=== PATIENT | male | born 1960 | race Caucasian/White ===

== ENCOUNTER 2017-07-18 14:58 | Inpatient (IN) | payer OTHER ==
[2017-07-18] MEDS ORDERED: cefTRIAXone (Rocephin) 250 mg Inj IVPB STA (16:15)
[2017-07-18] MEDS ORDERED: Sodium Chloride 0.9% 1,000 ML IV ONE ×2 (16:16→18:31)
[2017-07-18] MEDS ORDERED: Sodium Chloride 0.9% 1,000 ML ONE ×2 (16:43→18:35)
[2017-07-18 16:45] LABS: BASO # 0.1 K/uL (0.0-0.2); BASO % 0.4 % (0.0-2.0); EOS # 0.3 K/uL (0.0-0.7); HEMATOCRIT 33.6 % (35.0-51.0); LYMPH # 1.4 K/uL (1.0-4.3); LYMPH % 5.3 % (20.0-40.0); MEAN CELL VOLUME 97.1 fL (80.0-94.0); MEAN CORPUSCULAR HEMOGLOBIN 34.1 pg (27.0-31.0); MEAN CORPUSCULAR HGB CONC 35.1 g/dL (33.0-37.0); MEAN PLATELET VOLUME 7.9 fL (7.2-11.7); MONO # 2.8 K/uL (0.0-0.8); MONO % 10.5 % (0.0-10.0); PLATELET COUNT 193 K/uL (130-400); RED CELL DISTRIBUTION WIDTH 14.8 % (11.5-14.5); WHITE BLOOD COUNT 26.6 K/uL (4.8-10.8)
[2017-07-18] MEDS ORDERED: cefTRIAXone IV 1 gm in Dextros 50 ML IVPB ONE (16:46)
[2017-07-18 16:52] LABS: RBC URINE 59 /hpf (0-3); URINE BACTERIA MANY (<OCC); URINE BILIRUBIN NEGATIVE (NEGATIVE); URINE BLOOD 2+ (NEGATIVE); URINE COLOR Yellow (YELLOW); URINE GLUCOSE (UA) NORMAL (Normal); URINE KETONE NEGATIVE (NEGATIVE); URINE LEUKOCYTE ESTERASE 3+ Leu/uL (Negative); URINE PROTEIN 1+ mg/dL (NEGATIVE); URINE UROBILINOGEN NORMAL mg/dL (0.2-1.0); WBC URINE 120 /hpf (0-5)
[2017-07-18 17:01] LABS: POTASSIUM 2.8 mmol/L (3.6-5.2)
[2017-07-18 17:03] LABS: ALB/GLOB RATIO 0.7 (1.0-2.1); BILIRUBIN,TOTAL 0.4 mg/dL (0.2-1.3); TOTAL PROTEIN 7.2 g/dL (6.3-8.3)
[2017-07-18 17:04] LABS: CALCIUM 7.6 mg/dl (8.6-10.4)
--- NOTE | 2017-07-18 17:50 | C.PDOC ---
History Of Present Illness 57 y/o male presents to the ED c/o chills, general body aches, and a brown penile discharge. The patient states has not been sexually active for the 2-3 months. The patient has not been tested for STDS. The patient also states that during urination he has pain. The patient notes having low abdominal discomfort. The patient denies having STDS, fever, dizziness,vomiting, nausea, and sweats. Time Seen by Provider: 07/18/17 15:31 Chief Complaint (Nursing): Male Genitourinary History Per: Patient Onset/Duration Of Symptoms: Days Current Symptoms Are (Timing): Still Present Past Medical History Reviewed: Historical Data, Nursing Documentation, Vital Signs Vital Signs: Last Vital Signs Temp 99.5 F 07/18/17 18:02 Pulse 100 H 07/18/17 18:02 Resp 16 07/18/17 18:02 BP 112/74 07/18/17 18:02 Pulse Ox 99 07/18/17 18:08 Surgical History: No Surg Hx Family History: States: Unknown Family Hx - Social History Hx Tobacco Use: Yes Hx Alcohol Use: Yes (quit one month ago) Hx Substance Use: No - Immunization History Hx Influenza Vaccination: No Hx Pneumococcal Vaccination: No Review Of Systems Except As Marked, All Systems Reviewed And Found Negative. Constitutional: Positive for: Chills, Malaise. Negative for: Fever, Sweats Respiratory: Negative for: Cough, Shortness of Breath Gastrointestinal: Positive for: Abdominal Pain (low). Negative for: Nausea, Vomiting Genitourinary: Positive for: Penile Discharge (brown color). Negative for: Hematuria, Penile Pain (when the patient urinates) Skin: Negative for: Rash, Lesions Physical Exam - Physical Exam Appears: Non-toxic Skin: Warm Head: Atraumatic, Normacephalic Oral Mucosa: Moist Neck: Supple Chest: Symmetrical Cardiovascular: Rhythm Regular Respiratory: Normal Breath Sounds Gastrointestinal/Abdominal: Soft, No Tenderness, No Guarding, No Rebound Male Genital: No Testicular Tenderness, No Testicular Swelling, No Circumcised, Other (uncircumcised, visble discharge at the pit of the penis , adenopathy to the femoral region and testes are descended ) Extremity: Capillary Refill (<2sec. ) Neurological/Psych: Oriented x3, Normal Speech, Normal Cognition Gait: Steady ED Course And Treatment - Laboratory Results Result Diagrams: 10/07/17 16:40 07/18/17 16:40 O2 Sat by Pulse Oximetry: 99 (RA) Progress Note: The patient received IV fluids, Blood work, urine culture, electrocardiogram, ABD and Pelvis contrast, ABD and pelvis w/o PO. The patient was administered Rocephin. The exams are unremarkable. The patient has improved and is resting comfortably. Upon, reevaluation the patient is afebrile and PO tolerant. The patient is advised to have a follow up with PMD for further evaluation. Medical Decision Making Medical Decision Making: Patient with c/o fever, chills, penile discharge. Hypokalemia. RI elevated WBC count Disposition Discussed With Dr.: Lucien Christensen Counseled Patient/Family Regarding: Studies Performed, Diagnosis - Disposition Disposition: HOSPITALIZED Disposition Time: 18:33 Condition: GUARDED - Clinical Impression Clinical Impression: Chills, Hypokalemia, Renal insufficiency, Penile discharge - Scribe Statement The provider has reviewed the documentation as recorded by the Alvaibcarmel Villaseñor All medical record entries made by the Alvaibcarmel were at my direction and personally dictated by me. I have reviewed the chart and agree that the record accurately reflects my personal performance of the history, physical exam, medical decision making, and the department course for this patient. I have also personally directed, reviewed, and agree with the discharge instructions and disposition. Decision To Admit - Pt Status Changed To: Hospital Disposition Of: Inpatient - Admit Certification Admit to Inpatient:: After my assessment, the patient will require hospitalization for at least two midnights. This is because of the severity of symptoms shown, intensity of services needed, and/or the medical risk in this patient being treated as an outpatient. - InPatient: Physician Admission Certification: I certify that this patient requires 2 or more midnights of care for the following reason:: new onset RI, Hypok, fever, chills, abdominal pain , penile discharge, leukocytosis - . Bed Request Type: Regular Patient Diagnosis: Chills, Hypokalemia, Renal insufficiency, Penile discharge
[2017-07-18 18:04] LABS: VENOUS BLOOD GAS BASE EXCESS -9.8 mmol/L (0.0-2.0); VENOUS BLOOD GAS PCO2 30 mmHg (40-60); VENOUS BLOOD PH 7.31 (7.32-7.43)
[2017-07-18 18:04] LABS: NEUTROPHIL 90 % (50-75); TOTAL CELLS COUNTED 100
[2017-07-18 18:05] LABS: LARGE PLATELETS PRESENT
[2017-07-18] MEDS ORDERED: Potassium Chloride 20 mEq/15 ml LIQ UD PO STA (18:07)
--- NOTE | 2017-07-18 18:19 | RAD ---
HISTORY: SOB COMPARISON: No prior. TECHNIQUE: Chest PA and lateral FINDINGS: LUNGS: Prominent reticular opacities in the lungs. There are emphysematous changes and thin wall cystic formations seen more prominent in the upper lobes. PLEURA: No significant pleural effusion identified. No pneumothorax apparent. CARDIOVASCULAR: Normal. OSSEOUS STRUCTURES: No significant abnormalities. VISUALIZED UPPER ABDOMEN: Normal. OTHER FINDINGS: None. IMPRESSION: Findings suspicious for COPD/ emphysema.
[2017-07-18] MEDS ORDERED: Potassium Chloride 20 mEq/15 ml LIQ UD ONE (18:37)
--- NOTE | 2017-07-18 21:54 | CP.PCM.HP ---
<Colten Fraire - Last Filed: 07/19/17 05:26> History of Present Illness - History of Present Illness History of Present Illness: PGY1 Medicine Note for Dr. Murphy Patient is a 57 year old male with no past medical history, presenting to the emergency room with fever/chills, body aches and painful, darkened/ discolored urine. The patient is predominately Italian speaking, a nurse was used to translate. Patient states the symptoms originally started two weeks ago and have been getting progressively worse. The patient states he started having painful urination about 2 weeks ago. He soon noticed that his urine was darker and brown in color. Over the past few days he has started to experience subjective fevers and chills periodically. He also states that he has been experiencing lower abdominal discomfort along with whole body aches. Patient states he is monogamous with his girlfriend and uses condoms for protection. He denies hx of STDs. Denies n/v/d/c, chest pain, sob, lightheadness, dizziness or headaches. PMH: denies PSH: denies Family: unknown Social: current smoker, quit alcohol one month ago, denies IV drug abuse Allergies: NKDA Present on Admission - Present on Admission Any Indicators Present on Admission: No Review of Systems - Constitutional Constitutional: Chills, Fever, Malaise - EENT Eyes: absent: Change in Vision Ears: absent: Dizziness Nose/Mouth/Throat: absent: Neck Pain - Cardiovascular Cardiovascular: absent: Chest Pain, Leg Edema, Pedal Edema - Respiratory Respiratory: absent: Cough - Gastrointestinal Gastrointestinal: Abdominal Pain (suprapubic). absent: Diarrhea, Nausea, Vomiting - Genitourinary Genitourinary: Difficulty Urinating, Dysuria. absent: Flank Pain - Reproductive: Male Reproductive:Male: Penile Discharge - Musculoskeletal Musculoskeletal: absent: Numbness, Tingling - Neurological Neurological: absent: Dizziness, Numbness, Vertigo - Psychiatric Psychiatric: absent: Confusion, Depression - Endocrine Endocrine: Cold Intolorance, Fatigue, Heat Intolorance. absent: Palpitations Past Patient History - Past Social History Smoking Status: Light Smoker < 10 Cigarettes Daily - PSYCHIATRIC Hx Substance Use: No - SURGICAL HISTORY Hx Surgeries: No Meds Allergies/Adverse Reactions: Allergies Allergy/AdvReac Type Severity Reaction Status Date / Time No Known Allergies Allergy Verified 07/18/17 17:27 Physical Exam - Constitutional Appears: Non-toxic, No Acute Distress - Head Exam Head Exam: ATRAUMATIC, NORMOCEPHALIC - Eye Exam Eye Exam: EOMI, Normal appearance - ENT Exam ENT Exam: Mucous Membranes Moist - Respiratory Exam Respiratory Exam: NORMAL BREATHING PATTERN. absent: Accessory Muscle Use, Clear to Auscultation Bilateral, Rales, Wheezes, Respiratory Distress - Cardiovascular Exam Cardiovascular Exam: REGULAR RHYTHM, +S1, +S2 - GI/Abdominal Exam GI & Abdominal Exam: Normal Bowel Sounds, Soft. absent: Distended, Firm, Guarding, Rigid, Tenderness - Rectal Exam Additional comments: Rectal tone intact. Mildly tender to palpation of left boarder of prostate - not very impressive for prostatitis - Extremities Exam Extremities exam: Positive for: normal capillary refill, pedal pulses present. Negative for: calf tenderness, pedal edema Additional comments: splinter hemorrhages in nails. - Back Exam Back exam: absent: CVA tenderness (L), CVA tenderness (R) - Neurological Exam Neurological exam: Alert, CN II-XII Intact, Oriented x3 - Psychiatric Exam Psychiatric exam: Normal Affect, Normal Mood - Skin Skin Exam: Dry, Normal Color, Warm Results - Vital Signs Recent Vital Signs: Last Vital Signs Temp 100.0 F H 07/18/17 21:34 Pulse 108 H 07/18/17 21:34 Resp 16 07/18/17 21:34 BP 119/73 07/18/17 21:34 Pulse Ox 95 07/18/17 21:34 - Labs Result Diagrams: 07/18/17 16:40 07/18/17 16:40 Labs: Laboratory Results - last 24 hr 07/18/17 07/18/17 07/18/17 16:31 16:40 16:40 WBC 26.6 H RBC 3.46 L Hgb 11.8 L Hct 33.6 L MCV 97.1 H MCH 34.1 H MCHC 35.1 RDW 14.8 H Plt Count 193 MPV 7.9 Neut % (Auto) 82.8 H Lymph % (Auto) 5.[address] [place] % (Auto) 10.5 H Eos % (Auto) 1.0 Baso % (Auto) 0.4 Neut # 22.0 H Lymph # 1.4 [place] # 2.8 H Eos # 0.3 Baso # 0.1 Neutrophils % (Manual) 90 H Lymphocytes % (Manual) 4 L Monocytes % (Manual) 6 Platelet Estimate Slightly decreased L Large Platelets Present pO2 VBG pH VBG pCO2 VBG HCO3 VBG Total CO2 VBG O2 Sat (Calc) VBG Base Excess VBG Potassium Glucose Lactate Crit Value Called To Crit Value Called By Crit Value Read Back Blood Gas Notified Time Sodium 131 L Potassium 2.8 L Chloride 101 Carbon Dioxide 16 L Anion Gap 17 BUN 43 H Creatinine 2.8 H Est GFR ( Amer) 29 Est GFR (Non-Af Amer) 24 Random Glucose 132 H Calcium 7.6 L Total Bilirubin 0.4 AST 29 ALT 26 Alkaline Phosphatase 186 H Total Protein 7.2 Albumin 3.0 L Globulin 4.3 H Albumin/Globulin Ratio 0.7 L Venous Blood Potassium Urine Color Yellow Urine Clarity Hazy Urine pH 6.0 Ur Specific [place] 1.005 Urine Protein 1+ H Urine Glucose (UA) Normal Urine Ketones Negative Urine Blood 2+ H Urine Nitrate Negative Urine Bilirubin Negative Urine Urobilinogen Normal Ur Leukocyte Esterase 3+ H Urine WBC (Auto) 120 H Urine RBC (Auto) 59 H Urine Bacteria Many H RPR Hep Bs Antibody HIV 1&2 Antibody Screen 07/18/17 07/18/17 07/18/17 16:40 16:40 16:40 WBC RBC Hgb Hct MCV MCH MCHC RDW Plt Count MPV Neut % (Auto) Lymph % (Auto) [place] % (Auto) Eos % (Auto) Baso % (Auto) Neut # Lymph # [place] # Eos # Baso # Neutrophils % (Manual) Lymphocytes % (Manual) Monocytes % (Manual) Platelet Estimate Large Platelets pO2 VBG pH VBG pCO2 VBG HCO3 VBG Total CO2 VBG O2 Sat (Calc) VBG Base Excess VBG Potassium Glucose Lactate Crit Value Called To Crit Value Called By Crit Value Read Back Blood Gas Notified Time Sodium Potassium Chloride Carbon Dioxide Anion Gap BUN Creatinine Est GFR ( Amer) Est GFR (Non-Af Amer) Random Glucose Calcium Total Bilirubin AST ALT Alkaline Phosphatase Total Protein Albumin Globulin Albumin/Globulin Ratio Venous Blood Potassium Urine Color Urine Clarity Urine pH Ur Specific [place] Urine Protein Urine Glucose (UA) Urine Ketones Urine Blood Urine Nitrate Urine Bilirubin Urine Urobilinogen Ur Leukocyte Esterase Urine WBC (Auto) Urine RBC (Auto) Urine Bacteria RPR Nonreactive Hep Bs Antibody Negative HIV 1&2 Antibody Screen Negative 07/18/17 18:01 WBC RBC Hgb Hct MCV MCH MCHC RDW Plt Count MPV Neut % (Auto) Lymph % (Auto) [place] % (Auto) Eos % (Auto) Baso % (Auto) Neut # Lymph # [place] # Eos # Baso # Neutrophils % (Manual) Lymphocytes % (Manual) Monocytes % (Manual) Platelet Estimate Large Platelets pO2 34 VBG pH 7.31 L VBG pCO2 30 L VBG HCO3 16.2 VBG Total CO2 16.0 L VBG O2 Sat (Calc) 71.0 H VBG Base Excess -9.8 L VBG Potassium 2.3 L* Glucose 111 H Lactate 0.8 Crit Value Called To Dr. catalan Crit Value Called By Ricky qiu Crit Value Read Back Y Blood Gas Notified Time 1804 Sodium 136.0 Potassium Chloride 112.0 H Carbon Dioxide Anion Gap BUN Creatinine Est GFR ( Amer) Est GFR (Non-Af Amer) Random Glucose Calcium Total Bilirubin AST ALT Alkaline Phosphatase Total Protein Albumin Globulin Albumin/Globulin Ratio Venous Blood Potassium 2.3 L* Urine Color Urine Clarity Urine pH Ur Specific [place] Urine Protein Urine Glucose (UA) Urine Ketones Urine Blood Urine Nitrate Urine Bilirubin Urine Urobilinogen Ur Leukocyte Esterase Urine WBC (Auto) Urine RBC (Auto) Urine Bacteria RPR Hep Bs Antibody HIV 1&2 Antibody Screen Assessment & Plan - Assessment and Plan (Free Text) Assessment: Sepsis 2/2 UTI CXR - Findings suspicious for COPD/ emphysema. Abd/Pelvis w/o PO or IV contrast CT - f/u official report, may need f/u MRI - something suspicious seen in vertebral discs L5 and S1 Leukocytosis 26.6, left shift neutro 90%, no bands VBG: pO2 - 34 pH - 7.31 L pCO2 - 30 L HCO3 - 16.2 Lactate - 0.8 CMP: Na 131, K 2.8, BUN 43, Cr 2.8, Alk Phos 186, continue to monitor UA - cloudy (non-transparent), 1+ protein, 2+ blood, 3+ Leuk Meena, bacteria many RPR - nonreactive Hep Bs Ab - neg HIV Ab screen - neg PSA - 1.26 Procalcitonin 15.67 H Received one dose of Rocephin 1gm and Azithromycin in ED Started on Doxycycline 100mg IVPB Q12H and Zosyn 2.25gm IVPB Q8H Lactated Ringer @125mL/hr f/u echo f/u urine culture f/u blood culture x4 (2 sets of 2) f/u GC/Chlamydia Acute Kidney Injury BUN 43, Cr 2.8 - continue to monitor Renal dosing for medications - zosyn 2.25gm Lactated Ringer @125mL/hr Continue to monitor Prophylactic Care Heparin 5000units SC Q8H Protonix 40mg PO daily Case discussed with Dr. Katherine Fraire PGY1 <Kartik Murphy P - Last Filed: 07/19/17 07:48> Results - Vital Signs Recent Vital Signs: Last Vital Signs Temp 98.1 F 07/19/17 04:40 Pulse 86 07/19/17 04:40 Resp 20 07/19/17 04:40 BP 113/68 07/19/17 04:40 Pulse Ox 95 07/19/17 04:40 - Labs Result Diagrams: 07/18/17 16:40 07/18/17 16:40 Labs: Laboratory Results - last 24 hr 07/18/17 07/18/17 07/18/17 16:31 16:40 16:40 WBC 26.6 H RBC 3.46 L Hgb 11.8 L Hct 33.6 L MCV 97.1 H MCH 34.1 H MCHC 35.1 RDW 14.8 H Plt Count 193 MPV 7.9 Neut % (Auto) 82.8 H Lymph % (Auto) 5.[address] % (Auto) 10.5 H Eos % (Auto) 1.0 Baso % (Auto) 0.4 Neut # 22.0 H Lymph # 1.4 [place] # 2.8 H Eos # 0.3 Baso # 0.1 Neutrophils % (Manual) 90 H Lymphocytes % (Manual) 4 L Monocytes % (Manual) 6 Platelet Estimate Slightly decreased L Large Platelets Present pO2 VBG pH VBG pCO2 VBG HCO3 VBG Total CO2 VBG O2 Sat (Calc) VBG Base Excess VBG Potassium Glucose Lactate Crit Value Called To Crit Value Called By Crit Value Read Back Blood Gas Notified Time Sodium 131 L Potassium 2.8 L Chloride 101 Carbon Dioxide 16 L Anion Gap 17 BUN 43 H Creatinine 2.8 H Est GFR ( Amer) 29 Est GFR (Non-Af Amer) 24 Random Glucose 132 H Calcium 7.6 L Total Bilirubin 0.4 AST 29 ALT 26 Alkaline Phosphatase 186 H Total Protein 7.2 Albumin 3.0 L Globulin 4.3 H Albumin/Globulin Ratio 0.7 L Prostate Specific Ag Procalcitonin Venous Blood Potassium Urine Color Yellow Urine Clarity Hazy Urine pH 6.0 Ur Specific [place] 1.005 Urine Protein 1+ H Urine Glucose (UA) Normal Urine Ketones Negative Urine Blood 2+ H Urine Nitrate Negative Urine Bilirubin Negative Urine Urobilinogen Normal Ur Leukocyte Esterase 3+ H Urine WBC (Auto) 120 H Urine RBC (Auto) 59 H Urine Bacteria Many H RPR Hep Bs Antibody HIV 1&2 Antibody Screen 07/18/17 07/18/17 07/18/17 16:40 16:40 16:40 WBC RBC Hgb Hct MCV MCH MCHC RDW Plt Count MPV Neut % (Auto) Lymph % (Auto) [place] % (Auto) Eos % (Auto) Baso % (Auto) Neut # Lymph # [place] # Eos # Baso # Neutrophils % (Manual) Lymphocytes % (Manual) Monocytes % (Manual) Platelet Estimate Large Platelets pO2 VBG pH VBG pCO2 VBG HCO3 VBG Total CO2 VBG O2 Sat (Calc) VBG Base Excess VBG Potassium Glucose Lactate Crit Value Called To Crit Value Called By Crit Value Read Back Blood Gas Notified Time Sodium Potassium Chloride Carbon Dioxide Anion Gap BUN Creatinine Est GFR ( Amer) Est GFR (Non-Af Amer) Random Glucose Calcium Total Bilirubin AST ALT Alkaline Phosphatase Total Protein Albumin Globulin Albumin/Globulin Ratio Prostate Specific Ag Procalcitonin Venous Blood Potassium Urine Color Urine Clarity Urine pH Ur Specific [place] Urine Protein Urine Glucose (UA) Urine Ketones Urine Blood Urine Nitrate Urine Bilirubin Urine Urobilinogen Ur Leukocyte Esterase Urine WBC (Auto) Urine RBC (Auto) Urine Bacteria RPR Nonreactive Hep Bs Antibody Negative HIV 1&2 Antibody Screen Negative 07/18/17 07/18/17 07/18/17 18:01 21:17 22:06 WBC RBC Hgb Hct MCV MCH MCHC RDW Plt Count MPV Neut % (Auto) Lymph % (Auto) [place] % (Auto) Eos % (Auto) Baso % (Auto) Neut # Lymph # [place] # Eos # Baso # Neutrophils % (Manual) Lymphocytes % (Manual) Monocytes % (Manual) Platelet Estimate Large Platelets pO2 34 VBG pH 7.31 L VBG pCO2 30 L VBG HCO3 16.2 VBG Total CO2 16.0 L VBG O2 Sat (Calc) 71.0 H VBG Base Excess -9.8 L VBG Potassium 2.3 L* Glucose 111 H Lactate 0.8 Crit Value Called To Dr. catalan Crit Value Called By Ricky qiu Crit Value Read Back Y Blood Gas Notified Time 1804 Sodium 136.0 Potassium Chloride 112.0 H Carbon Dioxide Anion Gap BUN Creatinine Est GFR ( Amer) Est GFR (Non-Af Amer) Random Glucose Calcium Total Bilirubin AST ALT Alkaline Phosphatase Total Protein Albumin Globulin Albumin/Globulin Ratio Prostate Specific Ag 1.26 Procalcitonin 15.67 H Venous Blood Potassium 2.3 L* Urine Color Urine Clarity Urine pH Ur Specific [place] Urine Protein Urine Glucose (UA) Urine Ketones Urine Blood Urine Nitrate Urine Bilirubin Urine Urobilinogen Ur Leukocyte Esterase Urine WBC (Auto) Urine RBC (Auto) Urine Bacteria RPR Hep Bs Antibody HIV 1&2 Antibody Screen Attending/Attestation - Attestation I have personally seen and examined this patient.: Yes I have fully participated in the care of the patient.: Yes I have reviewed all pertinent clinical information: Yes Notes (Text): Assessment * Sepsis with turbid urine, air in the bladder suggesting either gas forming bact vs fistula * Clinically bacterimic r/o endocarditis, ? right second toe splinter hemorrhage * RADHA from above vs effect of excessive Ibuprofen of 800mg qid for > then wk * Patient has clubbing unclear significance Plan * IV zosyn and doxycycline * Echo * IVF * avoid nephortoxic meds * gi/dvt prophylaxis * Pending eval of source of bladder infection, possible fistula, or any secondary source of infection depending on further course.
[2017-07-18] MEDS: Piperacill/Tazo 2.25gm in Dex 2.25 GM/50 ML BAG IVPB SCH (22:19)
[2017-07-18] MEDS: Lactated Ringer's 1,000 ML IV SCH (22:20)
[2017-07-19] MEDS: Lactated Ringer's 1,000 ML IV SCH ×2 (05:46→16:48)
[2017-07-19] MEDS: Piperacill/Tazo 2.25gm in Dex 2.25 GM/50 ML BAG IVPB SCH ×2 (05:46→13:40)
--- NOTE | 2017-07-19 08:41 | CT ---
PROCEDURE: CT Abdomen and Pelvis without intravenous contrast HISTORY: Generalized abdominal pain COMPARISON: None. TECHNIQUE: Axial and reformatted coronal and sagittal CT images of the abdomen and pelvis were obtained without IV or oral contrast administration.. Contrast Dose: 0 Radiation dose: Total exam DLP = 214.79 mGy-cm. This CT exam was performed using one or more of the following dose reduction techniques: Automated exposure control, adjustment of the mA and/or kV according to patient size, and/or use of iterative reconstruction technique. FINDINGS: LOWER THORAX: Unremarkable. LIVER: The liver is mildly enlarged. No discrete mass lesion noted in this noncontrast exam. . No ductal dilatation. GALLBLADDER AND BILE DUCTS: Mild gallbladder wall thickening. No CT evidence of cholecystitis. PANCREAS: Unremarkable. No gross lesion or ductal dilatation. SPLEEN: Unremarkable. ADRENALS: Unremarkable. No mass. KIDNEYS AND URETERS: The right kidney is mildly to moderately enlarged. There is mild dietitian of the right kidney collecting system and mild surrounding perirenal stranding seen. There is no evidence of obstructing stone. The left kidney is unremarkable without evidence of hydronephrosis or nephrolithiasis. VASCULATURE: Unremarkable. No aortic aneurysm. BOWEL: Sigmoid colon wall thickening is noted. Scattered colonic diverticulosis are seen without definite CT evidence of diverticulitis. Mildly dilated small bowel loops without evidence of high-grade bowel obstruction. APPENDIX: There is no evidence of appendicitis. PERITONEUM: Trace free fluid is seen. No evidence of free air in the abdomen and pelvis. LYMPH NODES: Slightly prominent retroperitoneal and mesenteric lymph nodes. BLADDER: The urinary bladder is mildly distended contains moderate amount of air. REPRODUCTIVE: Prostate is mildly enlarged. BONES: No acute fracture. OTHER FINDINGS: None. IMPRESSION: [id number] diffuse enlargement of the right kidney noted. The differential diagnosis includes infectious process such as pyelonephritis. The differential consideration also includes lymphoma. Mildly dilated right kidney collecting system without evidence of obstructing stone. Mild anasarca. Sigmoid colon wall thickening of uncertain etiology. Few scattered colonic diverticulosis seen without evidence of diverticulitis. Mildly to moderately distended bladder contains moderate amount of free air. The differential diagnosis includes recent instrumentation versus less likely cystitis with gas-forming organisms. Mildly dilated small bowel loops without evidence of high-grade bowel obstruction. The assessment of the GI is somewhat limited without oral contrast administration. Preliminary report was submitted by [facility].
[2017-07-19 08:44] LABS: POTASSIUM 3.1 mmol/L (3.6-5.2)
[2017-07-19 08:47] LABS: ALB/GLOB RATIO 0.7 (1.0-2.1); BILIRUBIN,TOTAL 0.5 mg/dL (0.2-1.3); CALCIUM 7.3 mg/dl (8.6-10.4); PHOSPHOROUS 3.1 mg/dL (2.5-4.5); TOTAL PROTEIN 6.5 g/dL (6.3-8.3)
[2017-07-19 08:48] LABS: MAGNESIUM 2.4 mg/dL (1.6-2.3)
[2017-07-19] MEDS: Pantoprazole 40 mg EC Tab PO SCH (11:00)
[2017-07-19] MEDS ORDERED: Potassium Chloride 20 mEq ER Tab PO ONE (12:27)
[2017-07-19 17:44] LABS: BASO # 0.1 K/uL (0.0-0.2); BASO % 0.8 % (0.0-2.0); EOS # 0.1 K/uL (0.0-0.7); EOS % 0.7 % (0.0-4.0); HEMATOCRIT 31.9 % (35.0-51.0); LYMPH # 1.6 K/uL (1.0-4.3); LYMPH % 11.4 % (20.0-40.0); MEAN CELL VOLUME 98.1 fL (80.0-94.0); MEAN CORPUSCULAR HEMOGLOBIN 33.9 pg (27.0-31.0); MEAN CORPUSCULAR HGB CONC 34.5 g/dL (33.0-37.0); MEAN PLATELET VOLUME 8.5 fL (7.2-11.7); MONO # 1.9 K/uL (0.0-0.8); MONO % 13.5 % (0.0-10.0); RED CELL DISTRIBUTION WIDTH 14.4 % (11.5-14.5); WHITE BLOOD COUNT 13.9 K/uL (4.8-10.8)
[2017-07-19] MEDS ORDERED: Albuterol-Ipratrop 3 mg / 0.5 (3 ml) UD INH PRN (18:09)
--- NOTE | 2017-07-19 18:21 | CP.PCM.CON ---
History of Present Illness - History of Present Illness History of Present Illness: chart reviewed/ pt examined admitted with flank pain fever and poossible sepsis IV antibiotics ordered Review of Systems - Constitutional Constitutional: As Per HPI - EENT Eyes: absent: As Per HPI, Blind Spots, Blurred Vision, Change in Vision, Decreased Night Vision, Diplopia, Discharge, Dry Eye, Exophthalmos, Floaters, Irritation, Itchy Eyes, Loss of Peripheral Vision, Pain, Photophobia, Requires Corrective Lenses, Sees Flashes, Spots in Vision, Tunnel Vision, Other Visual Disturbances, Loss of Vision, Other Ears: absent: As Per HPI, Decreased Hearing, Ear Discharge, Ear Pain, Tinnitus, Abnormal Hearing, Disequilibrium, Dizziness, Other Nose/Mouth/Throat: absent: As Per HPI, Epistaxis, Nasal Congestion, Nasal Discharge, Nasal Obstruction, Nasal Trauma, Nose Pain, Post Nasal Drip, Sinus Pain, Sinus Pressure, Bleeding Gums, Change in Voice, Dental Pain, Dry Mouth, Dysphagia, Halitosis, Hoarsness, Lip Swelling, Mouth Lesions, Mouth Pain, Odynophagia, Sore Throat, Throat Swelling, Tongue Swelling, Facial Pain, Neck Pain, Neck Mass, Other - Cardiovascular Cardiovascular: absent: As Per HPI, Acrocyanosis, Chest Pain, Chest Pain at Rest , Chest Pain with Activity, Claudication, Diaphoresis, Dyspnea, Dyspnea on Exertion, Edema, Irregular Heart Rhythm, Pain Radiating to Arm/Neck/Jaw, Leg Edema, Leg Ulcers, Lightheadedness, Orthopnea, Palpitations, Paroxysmal Nocturnal Dyspnea, Pedal Edema, Radiating Pain, Rapid Heart Rate, Slow Heart Rate, Syncope, Other - Respiratory Respiratory: absent: As Per HPI, Cough, Dyspnea, Hemoptysis, Dyspnea on Exertion , Wheezing, Snoring, Stridor, Pain on Inspiration, Chest Congestion, Excessive Mucous Production, Change in Mucous Color, Pain with Coughing, Other - Gastrointestinal Gastrointestinal: absent: As Per HPI, Abdominal Pain, Belching, Bloating, Change in Bowel Habits, Change in Stool Character, Coffee Ground Emesis, Constipation, Cramping, Diarrhea, Dyspepsia, Dysphagia, Early Satiety, Excessive Flatus, Fecal Incontinence, Heartburn, Hematemesis, Hematochezia, Loose Stools, Melena, Nausea, Odynophagia, Temesmus, Vomiting, Other - Genitourinary Genitourinary: As Per HPI - Musculoskeletal Musculoskeletal: absent: As Per HPI, Abnormal Gait, Arthralgias, Atrophy, Back Pain, Deformity, Joint Swelling, Limited Range of Motion, Loss of Height, Muscle Cramps, Muscle Weakness, Myalgias, Neck Pain, Numbness, Radiating Pain into Limb, Stiffness, Tingling, Other - Integumentary Integumentary: absent: As Per HPI, Acne, Alopecia, Bleeding Lesions, Change in Hair, Change in Nails, Change in Pigmentation, Changing Lesions, Dry Skin, Erythema, Furuncle, Hirsutism, Lesions, New Lesions, Non-Healing Lesions, Photosensitivity, Pruritus, Rash, Skin Pain, Skin Ulcer, Sores, Striae, Swelling , Unusual Bruising, Wounds, Jaundice, Other - Neurological Neurological: absent: As Per HPI, Abnormal Gait, Abnormal Hearing, Abnormal Movements, Abnormal Speech, Behavioral Changes, Burning Sensations, Confusion, Convulsions, Disequilibrium, Dizziness, Numbness, Focal Weakness, Frequent Falls , Headaches, Lack of Coordination, Loss of Vision, Memory Loss, Paresthesias, Radicular Pain, Restless Legs, Sensory Deficit, Syncope, Tingling, Tremor, Vertigo, Weakness, Other Visual Disturbances, Other - Psychiatric Psychiatric: absent: As Per HPI, Abnormal Sleep Pattern, Anhedonia, Anxiety, Auditory Hallucinations, Behavioral Changes, Change in Appetite, Change in Libido, Confusion, Depression, Difficulty Concentrating, Hallucinations, Homicidal Ideation, Hopelessness, Irritability, Memory Loss, Mood Swings, Panic Attacks, Paranoia, Suicidal Ideation, Visual Hallucinations, Tactile Hallucinations, Other - Endocrine Endocrine: absent: As Per HPI, Change in Body Appearance, Change in Libido, Cold Intolorance, Deepening of Voice, Excessive Sweating, Fatigue, Flushing, Heat Intolorance, Increase in Ring/Shoe/Hat Size, Palpitations, Polydipsia, Polyphagia, Polyuria, Other - Hematologic/Lymphatic Hematologic: absent: As Per HPI, Easy Bleeding, Easy Bruising, Lymphadenopathy, Other Past Patient History - Past Medical History & Family History Past Medical History?: Yes - Past Social History Smoking Status: Light Smoker < 10 Cigarettes Daily - MUSCULOSKELETAL/RHEUMATOLOGICAL Hx Falls: No - PSYCHIATRIC Hx Substance Use: No - SURGICAL HISTORY Hx Surgeries: No - ANESTHESIA Hx Anesthesia: Yes Hx Anesthesia Reactions: No Meds Allergies/Adverse Reactions: Allergies Allergy/AdvReac Type Severity Reaction Status Date / Time No Known Allergies Allergy Verified 07/18/17 17:27 - Medications Medications: Current Medications Acetaminophen (Tylenol 325mg Tab) 650 mg PO Q6 [facility] Stop: 07/20/17 18:30 Last Admin: 07/19/17 18:12 Dose: Not Given Acetaminophen (Tylenol 325mg Tab) 650 mg PO Q6 PRN PRN Reason: Fever or pain Albuterol/Ipratropium (Duoneb 3 Mg/0.5 Mg (3 Ml) Ud) 3 ml INH RQ6 PRN PRN Reason: Shortness of Breath Heparin Sodium (Porcine) (Heparin) 5,000 units SC Q12 [facility] Last Admin: 07/19/17 11:00 Dose: 5,000 units Doxycycline Hyclate 100 mg/ (Sodium Chloride) 100 mls @ 100 mls/hr IVPB Q12H [facility] Last Admin: 07/19/17 11:00 Dose: 100 mls/hr Piperacillin Sod/Tazobactam Sod (Zosyn 2.25 Gm Iv Premix) 2.25 gm in 50 mls @ 100 mls/hr IVPB Q8H [facility] Last Admin: 07/19/17 13:40 Dose: 100 mls/hr Sodium Bicarbonate 150 meq/ (Sodium Chloride) 1,000 mls @ 100 mls/hr IV .Q10H [facility] Pantoprazole Sodium (Protonix Ec Tab) 40 mg PO DAILY [facility] Last Admin: 07/19/17 11:00 Dose: 40 mg Pneumococcal Polyvalent Vaccine (Pneumovax 23 Vaccine) 0.5 ml IM .ONCE ONE Stop: 07/20/17 10:01 Saccharomyces Boulardii (Florastor) 250 mg PO BID [facility] Fluticasone/Salmeterol (Advair Diskus 250/50) 1 puff INH RQ12 [facility] Physical Exam - Constitutional Appears: Non-toxic, Chronically Ill - Head Exam Head Exam: ATRAUMATIC, NORMAL INSPECTION, NORMOCEPHALIC - Eye Exam Eye Exam: EOMI, PERRL. absent: Scleral icterus - ENT Exam ENT Exam: Mucous Membranes Dry, Normal External Ear Exam - Neck Exam Neck exam: Negative for: Lymphadenopathy - Respiratory Exam Respiratory Exam: Decreased Breath Sounds, Rhonchi - Cardiovascular Exam Cardiovascular Exam: REGULAR RHYTHM, +S1, +S2 - GI/Abdominal Exam GI & Abdominal Exam: Diminished Bowel Sounds, Soft. absent: Tenderness - Rectal Exam Rectal Exam: Deferred - Exam Exam: NORMAL INSPECTION - Extremities Exam Extremities exam: Positive for: pedal pulses present. Negative for: calf tenderness, pedal edema, tenderness - Back Exam Back exam: absent: CVA tenderness (L), CVA tenderness (R), paraspinal tenderness - Neurological Exam Neurological exam: Alert, CN II-XII Intact, Oriented x3, Reflexes Normal - Psychiatric Exam Psychiatric exam: Normal Mood - Skin Skin Exam: Dry Results - Vital Signs Recent Vital Signs: Last Vital Signs Temp 100.9 F H 07/19/17 16:47 Pulse 82 07/19/17 16:33 Resp 20 07/19/17 16:33 BP 135/78 07/19/17 16:33 Pulse Ox 97 07/19/17 16:33 - Labs Result Diagrams: 07/22/17 07:26 07/22/17 07:26 Labs: Laboratory Results - last 24 hr 07/18/17 07/18/17 07/18/17 16:40 16:40 21:17 WBC RBC Hgb Hct MCV MCH MCHC RDW Plt Count MPV Neut % (Auto) Lymph % (Auto) [place] % (Auto) Eos % (Auto) Baso % (Auto) Neut # Lymph # [place] # Eos # Baso # Sodium Potassium Chloride Carbon Dioxide Anion Gap BUN Creatinine Est GFR ( Amer) Est GFR (Non-Af Amer) Random Glucose Calcium Phosphorus Magnesium Total Bilirubin AST ALT Alkaline Phosphatase Total Protein Albumin Globulin Albumin/Globulin Ratio Prostate Specific Ag 1.26 Procalcitonin Hep Bs Antibody Negative HIV 1&2 Antibody Screen Negative 07/18/17 07/19/17 07/19/17 22:06 08:07 16:40 WBC 13.9 H RBC 3.25 L Hgb 11.0 L Hct 31.9 L MCV 98.1 H MCH 33.9 H MCHC 34.5 RDW 14.4 Plt Count 187 MPV 8.5 Neut % (Auto) 73.6 Lymph % (Auto) 11.4 L [place] % (Auto) 13.5 H Eos % (Auto) 0.7 Baso % (Auto) 0.8 Neut # 10.2 H Lymph # 1.6 [place] # 1.9 H Eos # 0.1 Baso # 0.1 Sodium 133 Potassium 3.1 L Chloride 109 H Carbon Dioxide 13 L Anion Gap 14 BUN 38 H Creatinine 2.3 H Est GFR ( Amer) 36 Est GFR (Non-Af Amer) 30 Random Glucose 99 Calcium 7.3 L Phosphorus 3.1 Magnesium 2.4 H Total Bilirubin 0.5 AST 48 ALT 31 Alkaline Phosphatase 356 H D Total Protein 6.5 Albumin 2.7 L Globulin 3.7 Albumin/Globulin Ratio 0.7 L Prostate Specific Ag Procalcitonin 15.67 H Hep Bs Antibody HIV 1&2 Antibody Screen Assessment & Plan (1) RADHA (acute kidney injury) Status: Acute (2) Renal insufficiency Status: Acute (3) UTI (urinary tract infection) Status: Acute - Assessment and Plan (Free Text) Assessment: await cultures, eval IV antibiotics ordered
[2017-07-19] MEDS: Saccharomyces Boulardi 250 mg Cap PO SCH (19:00)
[2017-07-19] MEDS: Sodium Bicarbonate 8.4% 150 MEQ in Sodium Chloride 0.9% 850 ML IV SCH (19:08)
--- NOTE | 2017-07-19 19:15 | CP.PCM.PN ---
<Valentine Shay - Last Filed: 07/19/17 20:03> Subjective - Date & Time of Evaluation Date of Evaluation: 07/19/17 Time of Evaluation: 09:00 - Subjective Subjective: Medicine Progress Note Patient seen and examined. Patient is pleasant and tolerating his diet well. Patient is complaining of back pain bilaterally. Patient denies pain with urination today and is using urinal at bedside. Urine is yellow and clear in appearance with no blood visible to naked eye. Patient has been having fevers today with Tmax 100.9F. Denies nausea, vomiting, abdominal pain, chest pain, and shortness of breath. Objective - Vital Signs/Intake and Output Vital Signs (last 24 hours): Temp Pulse Resp BP Pulse Ox 99 F 82 20 135/78 97 07/19/17 17:47 07/19/17 16:33 07/19/17 16:33 07/19/17 16:33 07/19/17 16:33 Intake and Output: 07/19/17 07/20/17 18:59 06:59 Intake Total 2200 Output Total 1550 Balance 650 - Medications Medications: Current Medications Acetaminophen (Tylenol 325mg Tab) 650 mg PO Q6 [facility] Stop: 07/20/17 18:30 Last Admin: 07/19/17 18:12 Dose: Not Given Acetaminophen (Tylenol 325mg Tab) 650 mg PO Q6 PRN PRN Reason: Fever or pain Albuterol/Ipratropium (Duoneb 3 Mg/0.5 Mg (3 Ml) Ud) 3 ml INH RQ6 PRN PRN Reason: Shortness of Breath Heparin Sodium (Porcine) (Heparin) 5,000 units SC Q12 [facility] Last Admin: 07/19/17 11:00 Dose: 5,000 units Doxycycline Hyclate 100 mg/ (Sodium Chloride) 100 mls @ 100 mls/hr IVPB Q12H [facility] Last Admin: 07/19/17 11:00 Dose: 100 mls/hr Piperacillin Sod/Tazobactam Sod (Zosyn 2.25 Gm Iv Premix) 2.25 gm in 50 mls @ 100 mls/hr IVPB Q8H [facility] Last Admin: 07/19/17 13:40 Dose: 100 mls/hr Sodium Bicarbonate 150 meq/ (Sodium Chloride) 1,000 mls @ 100 mls/hr IV .Q10H [facility] Last Admin: 07/19/17 19:08 Dose: 100 mls/hr Pantoprazole Sodium (Protonix Ec Tab) 40 mg PO DAILY [facility] Last Admin: 07/19/17 11:00 Dose: 40 mg Pneumococcal Polyvalent Vaccine (Pneumovax 23 Vaccine) 0.5 ml IM .ONCE ONE Stop: 07/20/17 10:01 Saccharomyces Boulardii (Florastor) 250 mg PO BID [facility] Last Admin: 07/19/17 19:00 Dose: 250 mg Fluticasone/Salmeterol (Advair Diskus 250/50) 1 puff INH RQ12 [facility] - Labs Labs: 07/19/17 16:40 07/19/17 08:07 - Constitutional Appears: Non-toxic, No Acute Distress - Head Exam Head Exam: ATRAUMATIC, NORMOCEPHALIC - Eye Exam Eye Exam: EOMI, Normal appearance Pupil Exam: NORMAL ACCOMODATION - ENT Exam ENT Exam: Mucous Membranes Moist - Neck Exam Neck Exam: Normal Inspection - Respiratory Exam Respiratory Exam: NORMAL BREATHING PATTERN. absent: Accessory Muscle Use, Rhonchi, Wheezes, Respiratory Distress - Cardiovascular Exam Cardiovascular Exam: REGULAR RHYTHM, +S1, +S2 - GI/Abdominal Exam GI & Abdominal Exam: Soft, Normal Bowel Sounds. absent: Tenderness - Extremities Exam Extremities Exam: Full ROM, Normal Inspection. absent: Calf Tenderness, Pedal Edema, Tenderness - Back Exam Back Exam: CVA tenderness (L), CVA tenderness (R) Additional comments: CVA tenderness R > L - Neurological Exam Neurological Exam: Alert, Awake, CN II-XII Intact, Oriented x3 - Psychiatric Exam Psychiatric exam: Normal Affect, Normal Mood - Skin Skin Exam: Dry, Intact, Normal Color, Warm Assessment and Plan - Assessment and Plan (Free Text) Assessment: Sepsis 2/2 UTI 07/19: febrile Tmax 100.9F. WBC decreased to 13.9 today, no bands. CXR - Findings suspicious for COPD/ emphysema. Abd/Pelvis w/o PO or IV contrast CT -mild to moderate diffuse enlargement of R kidney noted, consider pyelonephritis. No stone. Sigmoid colon thickening of uncertain etiology. Distended bladder contains free air. VBG: pO2 - 34 pH - 7.31 L pCO2 - 30 L HCO3 - 16.2 Lactate - 0.8 UA - cloudy (non-transparent), 1+ protein, 2+ blood, 3+ Leuk Meena, bacteria many RPR - nonreactive Hep Bs Ab - neg HIV Ab screen - neg PSA - 1.26 Procalcitonin 15.67 H Received one dose of Rocephin 1gm and Azithromycin in ED Started on Doxycycline 100mg IVPB Q12H and Zosyn 2.25gm IVPB Q8H f/u echo Urine culture f/u blood culture x4 (2 sets of 2) f/u GC/Chlamydia Consulted ID Dr De Leon- will f/u recommendations Add florastor 250mg PO daily Hypokalemia K+ 3.1 Repleted with Kdur 40mg PO once f/u BMP in AM with mag and phos Non-Anion Gap Metabolic Acidosis Added bicarb to IVF NS, 3 amps of HCO3 in 850ml Acute on Chronic Kidney Disease GFR 36, likely chronic f/u renal ultrasound Consulted Nephro Dr Sp Devries- will f/u recommendations BUN/Cr improving with IVF Avoid nephrotoxic medications Renal dosing for medications - zosyn 2.25gm IVF NS @100cc/hr 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 Advair 250/50 INH 1puff q12h Duonebs INH q6h prn SOB Prophylactic Care Heparin 5000units SC Q8H Protonix 40mg PO daily [facility] <Yaw Cabello - Last Filed: 07/19/17 21:16> Objective - Vital Signs/Intake and Output Vital Signs (last 24 hours): Temp Pulse Resp BP Pulse Ox 99 F 82 20 135/78 97 07/19/17 17:47 07/19/17 16:33 07/19/17 16:33 07/19/17 16:33 07/19/17 16:33 Intake and Output: 07/19/17 07/20/17 18:59 06:59 Intake Total 2200 700 Output Total 1550 500 Balance 650 200 - Medications Medications: Current Medications Acetaminophen (Tylenol 325mg Tab) 650 mg PO Q6 [facility] Stop: 07/20/17 18:30 Last Admin: 07/19/17 18:12 Dose: Not Given Acetaminophen (Tylenol 325mg Tab) 650 mg PO Q6 PRN PRN Reason: Fever or pain Albuterol/Ipratropium (Duoneb 3 Mg/0.5 Mg (3 Ml) Ud) 3 ml INH RQ6 PRN PRN Reason: Shortness of Breath Heparin Sodium (Porcine) (Heparin) 5,000 units SC Q12 [facility] Last Admin: 07/19/17 11:00 Dose: 5,000 units Doxycycline Hyclate 100 mg/ (Sodium Chloride) 100 mls @ 100 mls/hr IVPB Q12H [facility] Last Admin: 07/19/17 11:00 Dose: 100 mls/hr Piperacillin Sod/Tazobactam Sod (Zosyn 2.25 Gm Iv Premix) 2.25 gm in 50 mls @ 100 mls/hr IVPB Q8H [facility] Last Admin: 07/19/17 13:40 Dose: 100 mls/hr Sodium Bicarbonate 150 meq/ (Sodium Chloride) 1,000 mls @ 100 mls/hr IV .Q10H [facility] Last Admin: 07/19/17 19:08 Dose: 100 mls/hr Pantoprazole Sodium (Protonix Ec Tab) 40 mg PO DAILY [facility] Last Admin: 07/19/17 11:00 Dose: 40 mg Pneumococcal Polyvalent Vaccine (Pneumovax 23 Vaccine) 0.5 ml IM .ONCE ONE Stop: 07/20/17 10:01 Saccharomyces Boulardii (Florastor) 250 mg PO BID [facility] Last Admin: 07/19/17 19:00 Dose: 250 mg Fluticasone/Salmeterol (Advair Diskus 250/50) 1 puff INH RQ12 [facility] Last Admin: 07/19/17 20:14 Dose: 1 puff - Labs Labs: 07/19/17 16:40 07/19/17 08:07 Attending/Attestation - Attestation I have personally seen and examined this patient.: Yes I have fully participated in the care of the patient.: Yes I have reviewed all pertinent clinical information, including history, physical exam and plan: Yes Notes (Text): 07/19/17 21:09 Patient was seen and examined at 6:15 PM 07/19/17 Upon ROS: Abdominal pain has resolved Moving his bowels and they are normal NO cough NO SOB NO Chest Pain NO burning/pain with urination NO other complaints upon FULL ROS Also on Exam: Bilateral CVA tenderness with the Right > Left Assessments: 1). Sepsis likely secondary to UTI/Pyelonephritis/Cystitis F/U blood and urine cultures Doxycycline and Zosyn ID Dr. De Leon 2). Hypokalemia Repleated with KCl 40 mEq 3). NonAnion Gap Metabolic Acidosis Secondary to sepsis 3 amps of Bicoarbonate in NS at 100 ml per hour x 1 liter ordered 4). Acute Renal Failure (on Chronic?) F/U Renal U/S F/U further recommendations from Nephrology Dr. Bell 5). COPD/Emphysema As per Chest X Ray He continues to smoke 5 to 10 cig/day for many years Advair (he should be discharged on Breo Elipta as this will be cheaper out of pocket cost) Duoneb PRN 6). Sigmoid Colon Thickening He never has had a Colonscopy and will need one upon discharge as an outpatient 7). Prophylaxis He will get Tylenol 650 mg PO every 6 hours until 6:30 PM on 07/20/17 and then it will be Q6H PRN Fever/Pain Heparin Florastor Protonix Yaw Cabello D.O.
[2017-07-19] MEDS: Fluticasone-Salmeterol 250-50mcg Diskus INH SCH (20:14)
[2017-07-20] MEDS: Piperacill/Tazo 2.25gm in Dex 2.25 GM/50 ML BAG IVPB SCH ×2 (01:21→06:09)
[2017-07-20] MEDS: Sodium Bicarbonate 8.4% 150 MEQ in Sodium Chloride 0.9% 850 ML IV SCH (05:58)
[2017-07-20] MEDS: Fluticasone-Salmeterol 250-50mcg Diskus INH SCH ×2 (07:26→20:32)
[2017-07-20 08:01] LABS: BASO # 0.1 K/uL (0.0-0.2); BASO % 0.5 % (0.0-2.0); EOS # 0.1 K/uL (0.0-0.7); EOS % 0.8 % (0.0-4.0); HEMATOCRIT 31.4 % (35.0-51.0); LYMPH # 1.2 K/uL (1.0-4.3); LYMPH % 8.7 % (20.0-40.0); MEAN CELL VOLUME 97.2 fL (80.0-94.0); MEAN CORPUSCULAR HEMOGLOBIN 33.9 pg (27.0-31.0); MEAN CORPUSCULAR HGB CONC 34.9 g/dL (33.0-37.0); MEAN PLATELET VOLUME 8.4 fL (7.2-11.7); MONO % 14.8 % (0.0-10.0); PLATELET COUNT 188 K/uL (130-400); RED CELL DISTRIBUTION WIDTH 14.7 % (11.5-14.5); WHITE BLOOD COUNT 13.8 K/uL (4.8-10.8)
[2017-07-20 08:18] LABS: POTASSIUM 2.8 mmol/L (3.6-5.2)
[2017-07-20 08:20] LABS: ALB/GLOB RATIO 0.7 (1.0-2.1); BILIRUBIN,TOTAL 0.6 mg/dL (0.2-1.3); TOTAL PROTEIN 6.1 g/dL (6.3-8.3)
[2017-07-20 08:21] LABS: CALCIUM 7.4 mg/dl (8.6-10.4)
[2017-07-20 09:39] LABS: LARGE PLATELETS PRESENT; NEUTROPHIL 60 % (50-75); TOTAL CELLS COUNTED 100
[2017-07-20] MEDS ORDERED: Pneumococcal 23-Valent Vaccine IM ONE (10:00)
[2017-07-20] MEDS ORDERED: Ciprofloxacin 400mg/200ml D5W 400 MG/200 ML BAG IVPB SCH (10:15)
[2017-07-20] MEDS: Saccharomyces Boulardi 250 mg Cap PO SCH ×2 (10:38→18:41)
[2017-07-20] MEDS: Pantoprazole 40 mg EC Tab PO SCH (10:39)
[2017-07-20] MEDS ORDERED: Potassium Chloride 20 mEq ER Tab PO ONE (10:54)
[2017-07-20] MEDS: Potassium Chloride 20 mEq/15 ml LIQ UD PO SCH ×2 (13:03→18:43)
--- NOTE | 2017-07-20 13:37 | CP.PCM.CON ---
History of Present Illness - History of Present Illness History of Present Illness: Patient is a 57 year old male with no past medical history, presenting to the emergency room with fever/chills, body aches and painful, darkened/ discolored urine. The patient is predominately Fijian speaking, a nurse was used to translate. Patient states the symptoms originally started two weeks ago and have been getting progressively worse. The patient states he started having painful urination about 2 weeks ago. He soon noticed that his urine was darker and brown in color. Over the past few days he has started to experience subjective fevers and chills periodically. He also states that he has been experiencing lower abdominal discomfort along with whole body aches. Patient states he is monogamous with his girlfriend and uses condoms for protection. He denies hx of STDs. Denies n/v/d/c, chest pain, sob, lightheadness, dizziness or headaches. Other HX- nausea and vomiting x 2 weeks; fevers; taking excess NSAIDs PMH: denies PSH: denies Family: unknown Social: current smoker, quit alcohol one month ago, denies IV drug abuse Allergies: NKDA Review of Systems - Constitutional Constitutional: Chills, Fever, Weakness - EENT Eyes: absent: As Per HPI, Blind Spots, Blurred Vision, Change in Vision, Decreased Night Vision, Diplopia, Discharge, Dry Eye, Exophthalmos, Floaters, Irritation, Itchy Eyes, Loss of Peripheral Vision, Pain, Photophobia, Requires Corrective Lenses, Sees Flashes, Spots in Vision, Tunnel Vision, Other Visual Disturbances, Loss of Vision, Other Ears: absent: As Per HPI, Decreased Hearing, Ear Discharge, Ear Pain, Tinnitus, Abnormal Hearing, Disequilibrium, Dizziness, Other Nose/Mouth/Throat: absent: As Per HPI, Epistaxis, Nasal Congestion, Nasal Discharge, Nasal Obstruction, Nasal Trauma, Nose Pain, Post Nasal Drip, Sinus Pain, Sinus Pressure, Bleeding Gums, Change in Voice, Dental Pain, Dry Mouth, Dysphagia, Halitosis, Hoarsness, Lip Swelling, Mouth Lesions, Mouth Pain, Odynophagia, Sore Throat, Throat Swelling, Tongue Swelling, Facial Pain, Neck Pain, Neck Mass, Other - Cardiovascular Cardiovascular: Dyspnea - Respiratory Respiratory: Cough - Gastrointestinal Gastrointestinal: Abdominal Pain, Nausea, Vomiting - Genitourinary Genitourinary: Difficulty Urinating, Hematuria - Musculoskeletal Musculoskeletal: Muscle Weakness, Myalgias - Integumentary Integumentary: Dry Skin - Neurological Neurological: absent: As Per HPI, Abnormal Gait, Abnormal Hearing, Abnormal Movements, Abnormal Speech, Behavioral Changes, Burning Sensations, Confusion, Convulsions, Disequilibrium, Dizziness, Numbness, Focal Weakness, Frequent Falls , Headaches, Lack of Coordination, Loss of Vision, Memory Loss, Paresthesias, Radicular Pain, Restless Legs, Sensory Deficit, Syncope, Tingling, Tremor, Vertigo, Weakness, Other Visual Disturbances, Other Past Patient History - Past Medical History & Family History Past Medical History?: Yes Past Family History: Reviewed and not pertinent - Past Social History Smoking Status: Heavy Smoker > 10 Cigarettes Daily Chewing Tobacco Use: No Cigar Use: No Alcohol: > 2 Drinks/Day Drugs: Denies Home Situation {Lives}: With Family - MUSCULOSKELETAL/RHEUMATOLOGICAL Hx Falls: No - PSYCHIATRIC Hx Substance Use: No - SURGICAL HISTORY Hx Surgeries: No - ANESTHESIA Hx Anesthesia: Yes Hx Anesthesia Reactions: No Meds Allergies/Adverse Reactions: Allergies Allergy/AdvReac Type Severity Reaction Status Date / Time No Known Allergies Allergy Verified 07/18/17 17:27 - Medications Medications: Current Medications Acetaminophen (Tylenol 325mg Tab) 650 mg PO Q6 PRN PRN Reason: Fever or pain Albuterol/Ipratropium (Duoneb 3 Mg/0.5 Mg (3 Ml) Ud) 3 ml INH RQ6 PRN PRN Reason: Shortness of Breath Heparin Sodium (Porcine) (Heparin) 5,000 units SC Q12 [facility] Last Admin: 07/20/17 11:00 Dose: 5,000 units Doxycycline Hyclate 100 mg/ (Sodium Chloride) 100 mls @ 100 mls/hr IVPB Q12H [facility] Last Admin: 07/20/17 10:38 Dose: 100 mls/hr Piperacillin Sod/Tazobactam Sod (Zosyn 2.25 Gm Iv Premix) 2.25 gm in 50 mls @ 100 mls/hr IVPB Q8H [facility] Last Admin: 07/20/17 06:09 Dose: 100 mls/hr Sodium Bicarbonate 150 meq/ (Sodium Chloride) 1,000 mls @ 100 mls/hr IV .Q10H [facility] Last Admin: 07/20/17 05:58 Dose: Not Given Pantoprazole Sodium (Protonix Ec Tab) 40 mg PO DAILY [facility] Last Admin: 07/20/17 10:39 Dose: 40 mg Potassium Chloride (Potassium Chloride Oral Soln) 20 meq PO BID [facility] Stop: 07/20/17 18:01 Last Admin: 07/20/17 13:03 Dose: 20 meq Saccharomyces Boulardii (Florastor) 250 mg PO BID [facility] Last Admin: 07/20/17 10:38 Dose: 250 mg Fluticasone/Salmeterol (Advair Diskus 250/50) 1 puff INH RQ12 [facility] Last Admin: 07/20/17 07:26 Dose: 1 puff Physical Exam - Constitutional Appears: Non-toxic, Chronically Ill - Head Exam Head Exam: ATRAUMATIC, NORMAL INSPECTION - Eye Exam Eye Exam: EOMI, Normal appearance - Neck Exam Neck exam: Positive for: Normal Inspection. Negative for: Tenderness - Respiratory Exam Respiratory Exam: Clear to Auscultation Bilateral, NORMAL BREATHING PATTERN - Cardiovascular Exam Cardiovascular Exam: REGULAR RHYTHM, +S1 - GI/Abdominal Exam GI & Abdominal Exam: Distended, Tenderness - Extremities Exam Extremities exam: Positive for: normal inspection. Negative for: tenderness - Neurological Exam Neurological exam: CN II-XII Intact, Oriented x3 - Skin Skin Exam: Dry, Warm Results - Vital Signs Recent Vital Signs: Last Vital Signs Temp 99 F 07/20/17 12:44 Pulse 68 07/20/17 12:44 Resp 20 07/20/17 12:44 BP 143/83 07/20/17 12:44 Pulse Ox 99 07/20/17 12:44 - Labs Result Diagrams: 07/20/17 07:47 07/20/17 07:47 Labs: Laboratory Results - last 24 hr 07/19/17 07/20/17 07/20/17 16:40 07:47 07:47 WBC 13.9 H 13.8 H RBC 3.25 L 3.23 L Hgb 11.0 L 11.0 L Hct 31.9 L 31.4 L MCV 98.1 H 97.2 H MCH 33.9 H 33.9 H MCHC 34.5 34.9 RDW 14.4 14.7 H Plt Count 187 188 MPV 8.5 8.4 Neut % (Auto) 73.6 75.2 H Lymph % (Auto) 11.4 L 8.7 L [place] % (Auto) 13.5 H 14.8 H Eos % (Auto) 0.7 0.8 Baso % (Auto) 0.8 0.5 Neut # 10.2 H 10.4 H Lymph # 1.6 1.2 [place] # 1.9 H 2.0 H Eos # 0.1 0.1 Baso # 0.1 0.1 Neutrophils % (Manual) 60 Band Neutrophils % 16 H* Lymphocytes % (Manual) 9 L Monocytes % (Manual) 15 H Platelet Estimate Normal Large Platelets Present Hypochromasia (manual) Slight Poikilocytosis (manual Slight Anisocytosis (manual) Slight Target Cells Slight Sodium 135 Potassium 2.8 L Chloride 106 Carbon Dioxide 19 L Anion Gap 13 BUN 28 H Creatinine 1.8 H Est GFR ( Amer) 48 Est GFR (Non-Af Amer) 39 Random Glucose 124 H Calcium 7.4 L Total Bilirubin 0.6 AST 41 ALT 40 Alkaline Phosphatase 275 H D Total Protein 6.1 L Albumin 2.5 L Globulin 3.5 Albumin/Globulin Ratio 0.7 L Assessment & Plan (1) RADHA (acute kidney injury) Status: Acute (2) UTI (urinary tract infection) Status: Acute (3) Metabolic acidosis Status: Acute (4) Hypokalemia Status: Acute - Assessment and Plan (Free Text) Plan: Agree with IV fluids with na bicarb IV ABs Renal US might need eval if changes seen on CT persist
[2017-07-20 14:22] LABS: POTASSIUM 3.6 mmol/L (3.6-5.2)
[2017-07-20 14:25] LABS: CALCIUM 7.6 mg/dl (8.6-10.4)
--- NOTE | 2017-07-20 15:43 | CP.PCM.PN ---
<Isadora Nielsen - Last Filed: 07/20/17 19:48> Subjective - Date & Time of Evaluation Date of Evaluation: 07/20/17 Time of Evaluation: 15:43 - Subjective Subjective: Internal Medicine Progress Note for Dr. Chester Patient seen and examined at bedside. Patient states he's tolerating pain well. Patient states he is doing well and understands that he will be getting an ultrasound today. Patient denies Fever Chills, nausea vomiting. Patient as some flank pain and denies difficulty with bowel movements Bands 16. Patient had a fever of 100.9 at 16:33 yesterday. Objective - Vital Signs/Intake and Output Vital Signs (last 24 hours): Temp Pulse Resp BP Pulse Ox 99 F 68 20 143/83 99 07/20/17 12:44 07/20/17 12:44 07/20/17 12:44 07/20/17 12:44 07/20/17 12:44 Intake and Output: 07/20/17 07/20/17 06:59 18:59 Intake Total 700 Output Total 500 Balance 200 - Medications Medications: Current Medications Acetaminophen (Tylenol 325mg Tab) 650 mg PO Q6 PRN PRN Reason: Fever or pain Albuterol/Ipratropium (Duoneb 3 Mg/0.5 Mg (3 Ml) Ud) 3 ml INH RQ6 PRN PRN Reason: Shortness of Breath Heparin Sodium (Porcine) (Heparin) 5,000 units SC Q12 [facility] Last Admin: 07/20/17 11:00 Dose: 5,000 units Sodium Bicarbonate 150 meq/ (Sodium Chloride) 1,000 mls @ 100 mls/hr IV .Q10H [facility] Last Admin: 07/20/17 05:58 Dose: Not Given Ceftriaxone Sodium (Rocephin Iv 1 Gm Duplex) 50 mls @ 100 mls/hr IVPB Q24H [facility] Pantoprazole Sodium (Protonix Ec Tab) 40 mg PO DAILY [facility] Last Admin: 07/20/17 10:39 Dose: 40 mg Potassium Chloride (Potassium Chloride Oral Soln) 20 meq PO BID [facility] Stop: 07/20/17 18:01 Last Admin: 07/20/17 13:03 Dose: 20 meq Saccharomyces Boulardii (Florastor) 250 mg PO BID [facility] Last Admin: 07/20/17 10:38 Dose: 250 mg Fluticasone/Salmeterol (Advair Diskus 250/50) 1 puff INH RQ12 [facility] Last Admin: 07/20/17 07:26 Dose: 1 puff - Labs Labs: 07/20/17 07:47 07/20/17 13:57 - Constitutional Appears: Non-toxic - Head Exam Head Exam: NORMAL INSPECTION - Eye Exam Eye Exam: EOMI, Normal appearance - ENT Exam ENT Exam: Mucous Membranes Moist - Neck Exam Neck Exam: Full ROM - Respiratory Exam Respiratory Exam: NORMAL BREATHING PATTERN. absent: Accessory Muscle Use - Cardiovascular Exam Cardiovascular Exam: REGULAR RHYTHM, +S1, +S2. absent: Bradycardia, Tachycardia - GI/Abdominal Exam GI & Abdominal Exam: Soft - Back Exam Back Exam: CVA tenderness (L) (less than right), CVA tenderness (R) (more than left) - Neurological Exam Neurological Exam: Alert, CN II-XII Intact, Normal Gait - Psychiatric Exam Psychiatric exam: Normal Affect, Normal Mood - Skin Skin Exam: Dry, Intact, Normal Color, Warm Assessment and Plan - Assessment and Plan (Free Text) Plan: Patient seen and examined at bedside. Patient states that she can breath better today than yesterday, but still feels shortness of breath. Patient denied history of asthma, patient admits to coughing with white phlegm *"a little bit, " Rocephin 1gm QD IV leave with quinolone depending on creatitine clearance urine for cytology possible cystoscopy Per Dr. De Leon pyelonephritis picture, suggest based on urine Culture sensitivities: patient is placed on Rocephin 1 gm IVPB QD suggesting Urine Cytology and possible cystoscopy following Urology consult recommendations. Urology Spoken to on the phone, will see recommendations tomorrow 07/21 Medicine Progress Note Patient seen and examined. Patient is pleasant and tolerating his diet well. Patient is complaining of back pain bilaterally. Patient denies pain with urination today and is using urinal at bedside. Urine is yellow and clear in appearance with no blood visible to naked eye. Patient has been having fevers today with Tmax 100.9F. Denies nausea, vomiting, abdominal pain, chest pain, and shortness of breath. Sepsis 2/2 UTI/Pyelonephritis/cystitis with positive CVA tenderness 07/19: febrile Tmax 100.9F. WBC decreased to 13.9 today, no bands. CXR - Findings suspicious for COPD/ emphysema. CT Abd/Pelvis w/o PO or IV contrast: mild to moderate diffuse enlargement of R kidney without stone. Sigmoid colon wall thickening. Distended bladder contains free air. Renal Ultrasound was ordered for 07/20, follow up final read. 07/19 VB.31 pO2/pCO2/HCO3/lactate 34/30/16.2/0.8 UA: cloudy (non-transparent), 1+ protein, 2+ blood, 3+ Leuk Meena, bacteria many RPR - nonreactive Hep Bs Ab - neg HIV Ab screen - neg PSA - 1.26 Procalcitonin 15.67 H Received one dose of Rocephin 1gm and Azithromycin in ED Started on Doxycycline 100mg IVPB Q12H and Zosyn 2.25gm IVPB Q8H f/u echo Urine culture f/u blood culture x4 (2 sets of 2) f/u GC/Chlamydia Consulted ID Dr De Leon- will f/u recommendations Add florastor 250mg PO daily Hypokalemia, resolved f/u BMP in AM with mag and phos Non-Anion Gap Metabolic Acidosis Added bicarb to IVF NS, 3 amps of HCO3 in 850ml Acute on Chronic Kidney Disease GFR 39, likely chronic kidney disease 07/20 f/u renal ultrasound Nephrology Consult Dr. Sp Devries: f/u recommendations BUN/Cr improving with IVF Avoid nephrotoxic medications monitor CBCs Rocephin [address] De Leon started on 07/20 IVF NS @100cc/hr COPD/Emphysema As seen on Chest X-ray Advair 250/50 INH 1puff q12h Duonebs INH q6h prn SOB Prophylaxis Heparin 5000units SC Q8H Protonix 40mg PO daily SCDs discuss with Dr. Nemo Muir Eng, DO PGY1 <Aminata Chester V - Last Filed: 07/20/17 20:54> Objective - Vital Signs/Intake and Output Vital Signs (last 24 hours): Temp Pulse Resp BP Pulse Ox 101.6 F H 80 18 150/84 97 07/20/17 16:11 07/20/17 15:45 07/20/17 15:45 07/20/17 15:45 07/20/17 15:45 Intake and Output: 07/20/17 07/20/17 06:59 18:59 Intake Total 700 1150 Output Total 500 800 Balance 200 350 - Medications Medications: Current Medications Acetaminophen (Tylenol 325mg Tab) 650 mg PO Q6 PRN PRN Reason: Fever or pain Last Admin: 07/20/17 16:11 Dose: 650 mg Albuterol/Ipratropium (Duoneb 3 Mg/0.5 Mg (3 Ml) Ud) 3 ml INH RQ6 PRN PRN Reason: Shortness of Breath Heparin Sodium (Porcine) (Heparin) 5,000 units SC Q12 [facility] Last Admin: 07/20/17 11:00 Dose: 5,000 units Sodium Bicarbonate 150 meq/ (Sodium Chloride) 1,000 mls @ 100 mls/hr IV .Q10H [facility] Last Admin: 07/20/17 05:58 Dose: Not Given Ceftriaxone Sodium (Rocephin Iv 1 Gm Duplex) 50 mls @ 100 mls/hr IVPB Q24H [facility] Last Admin: 07/20/17 16:44 Dose: 100 mls/hr Pantoprazole Sodium (Protonix Ec Tab) 40 mg PO DAILY [facility] Last Admin: 07/20/17 10:39 Dose: 40 mg Potassium Chloride (Potassium Chloride Oral Soln) 20 meq PO BID [facility] Stop: 07/20/17 18:01 Last Admin: 07/20/17 13:03 Dose: 20 meq Saccharomyces Boulardii (Florastor) 250 mg PO BID [facility] Last Admin: 07/20/17 10:38 Dose: 250 mg Fluticasone/Salmeterol (Advair Diskus 250/50) 1 puff INH RQ12 [facility] Last Admin: 07/20/17 07:26 Dose: 1 puff - Labs Labs: 07/20/17 07:47 07/20/17 13:57 Attending/Attestation - Attestation I have personally seen and examined this patient.: Yes I have fully participated in the care of the patient.: Yes I have reviewed all pertinent clinical information, including history, physical exam and plan: Yes Notes (Text): Patient seen, examined with day-time resident. Patient is primarily Icelandic speaking. Patient reporting flank pain is less. Urology eval ordered given air noted on CT abdomen/Pelvis Order for renal US (renal duplex ordered in error). IV abx switched to Rocephin in light of sensitivities Assessment/Plan 1). Sepsis likely secondary to UTI/Pyelonephritis/Cystitis * Infectious Disease (Dr. De Leon) on board-->help appreciated * Nephrology (Dr. Bell) on board-->help appreciated * Urology (Dr. Campos) on board-->will see the patient tomorrow * CT Abdomen/Pelvis (07/19/17): mild to moderate diffuse enlargement of the right kidney. Mildly dilated right kidney collecting system without evidence of obstructing stone. Mild anasarca. Sigmoid colon wall thickening of uncertain etiology. mildly to moderately distended bladder contrain moderate amount of free air. Mild dilated small bowel loops without evidence of high grade bowel obstruction. * Blood cultures (07/18/17): no growth after 24hours X2 * Blood cultures (07/18/17): no growth after 24hours X2 * Urine culture (07/18/17): E. Coli-->leon sensitive * Switched to Rocephin 1 gram IV Q 24hour today (active since 07/20/17); prior on Doxcycline and Zosyn 2). Hypokalemia * repleted * f/u BMP: shows potassium improved 3). NonAnion Gap Metabolic Acidosis * Secondary to sepsis * improved 4). Acute Renal Failure (on Chronic?) * Nephrology (Dr. Bell) on board-->help appreciated * Renal US (07/20): unremarkable * improving 5). COPD/Emphysema * Chest xray (07/18/17): findings suspicious for COPD and emphysema * He continues to smoke 5 to 10 cig/day for many years; not smoking since in the hospital * Advair 250/50 1 puff inhaled Q 12hours (he should be discharged on Breo Elipta as this will be cheaper out of pocket cost) * Duoneb 3ml INH RQ6H PRN shortness of breathe 6). Sigmoid Colon Thickening * He never has had a Colonoscopy and will need one upon discharge as an outpatient 7). Prophylaxis * Tylenol 650 mg PO every 6 hours fever/pain * Heparin 5000 units subq 12 hours * Florastor 250mg PO bid * Protonix 40mg PO daily
--- NOTE | 2017-07-20 15:43 | US ---
PROCEDURE: Ultrasound of the Kidneys HISTORY: hydronephrosis COMPARISON: None available. TECHNIQUE: Sonogram of the kidneys. FINDINGS: RIGHT KIDNEY: Measures: 12.7 cm. Normal in size, contour and echogenicity. No stone, solid mass lesion or hydronephrosis visualized. LEFT KIDNEY: Measures: 9.2 cm. Normal in size, contour and echogenicity. No stone, solid mass lesion or hydronephrosis visualized. OTHER FINDINGS: None. IMPRESSION: Unremarkable renal sonogram.
--- NOTE | 2017-07-20 16:34 | CP.PCM.PN ---
Subjective - Date & Time of Evaluation Date of Evaluation: 07/20/17 Time of Evaluation: 08:00 - Subjective Subjective: feels ok no fever less flank pain CT noted c/s + e Coli- pansensitive can be treated with monotherapy- rocephin sabrina lam in progress Objective - Vital Signs/Intake and Output Vital Signs (last 24 hours): Temp Pulse Resp BP Pulse Ox 101.6 F H 80 18 150/84 97 07/20/17 16:11 07/20/17 15:45 07/20/17 15:45 07/20/17 15:45 07/20/17 15:45 Intake and Output: 07/20/17 07/20/17 06:59 18:59 Intake Total 700 Output Total 500 Balance 200 - Medications Medications: Current Medications Acetaminophen (Tylenol 325mg Tab) 650 mg PO Q6 PRN PRN Reason: Fever or pain Last Admin: 07/20/17 16:11 Dose: 650 mg Albuterol/Ipratropium (Duoneb 3 Mg/0.5 Mg (3 Ml) Ud) 3 ml INH RQ6 PRN PRN Reason: Shortness of Breath Heparin Sodium (Porcine) (Heparin) 5,000 units SC Q12 [facility] Last Admin: 07/20/17 11:00 Dose: 5,000 units Sodium Bicarbonate 150 meq/ (Sodium Chloride) 1,000 mls @ 100 mls/hr IV .Q10H [facility] Last Admin: 07/20/17 05:58 Dose: Not Given Ceftriaxone Sodium (Rocephin Iv 1 Gm Duplex) 50 mls @ 100 mls/hr IVPB Q24H [facility] Pantoprazole Sodium (Protonix Ec Tab) 40 mg PO DAILY [facility] Last Admin: 07/20/17 10:39 Dose: 40 mg Potassium Chloride (Potassium Chloride Oral Soln) 20 meq PO BID [facility] Stop: 07/20/17 18:01 Last Admin: 07/20/17 13:03 Dose: 20 meq Saccharomyces Boulardii (Florastor) 250 mg PO BID [facility] Last Admin: 07/20/17 10:38 Dose: 250 mg Fluticasone/Salmeterol (Advair Diskus 250/50) 1 puff INH RQ12 [facility] Last Admin: 07/20/17 07:26 Dose: 1 puff - Labs Labs: 07/20/17 07:47 07/20/17 13:57 - Constitutional Appears: Non-toxic, Chronically Ill - Head Exam Head Exam: NORMOCEPHALIC - Eye Exam Eye Exam: PERRL - ENT Exam ENT Exam: Mucous Membranes Dry - Neck Exam Neck Exam: absent: Lymphadenopathy - Respiratory Exam Respiratory Exam: Decreased Breath Sounds - Cardiovascular Exam Cardiovascular Exam: REGULAR RHYTHM - GI/Abdominal Exam GI & Abdominal Exam: Soft, Hypoactive Bowel Sounds - Rectal Exam Rectal Exam: Deferred - Exam Exam: NORMAL INSPECTION Assessment and Plan - Assessment and Plan (Free Text) Assessment: cont iv antiibotics gu eval
[2017-07-20] MEDS: cefTRIAXone IV 1 gm in Dextros 50 ML IVPB SCH (16:44)
--- NOTE | 2017-07-20 20:33 | CON ---
DATE: 07/20/2017 COMPREHENSIVE UROLOGY CONSULTATION TIME OF CONSULTATION: Roughly 6:05 p.m. BRIEF HISTORY: The patient is a 57-year-old male from [facility] who comes to [facility] ER with a history of elevated temperature and was found to have a UTI on his urinalysis and admitted for IV hydration and IV antibiotics. The patient denies any history of any dysuria, gross hematuria, renal colic, but does have some mild lower abdominal discomfort. Abdominal pelvic CT done showed thickening sigmoid, but no evidence of any diverticulitis. Normal kidneys without any hydronephrosis also noted on renal ultrasound. No evidence of any kidney stones or ureteral stones. No evidence of any obstructive uropathy, just some air in the bladder. The patient was found to have E. coli on his urine culture sensitivity and has improved on his Rocephin, which he is receiving as IV antibiotic. PAST MEDICAL HISTORY: Notably negative. PAST SURGICAL HISTORY: No past surgical history. FAMILY HISTORY: Noncontributory and no family history of cancer. The patient also denies any history of cancer. The CAT scan did show a right kidney that was mildly to moderately enlarged and there was mild dilatation of the right collecting system, however, this was not seen on the renal ultrasound. There was no evidence of any obstructing ureteral stones. The left kidney was unremarkable without any evidence of any hydronephrosis or nephrolithiasis. There was no hydronephrosis seen on the renal ultrasound. The sigmoid colon showed some thickening and some scattered colonic diverticulosis without any definite CT evidence of diverticulitis. There was mildly dilated small bowel loops without any evidence of any great bowel obstruction. There was no evidence of any appendicitis. There was no evidence of any free air in the abdomen and pelvis. The urinary bladder was mildly distended and contained a moderate amount of some air. The prostate was mildly enlarged. SOCIAL HISTORY: He is a tobacco user and also consumes alcohol, but only as a social drinker. ALLERGIES: THE PATIENT DENIES ANY HISTORY OF ANY ALLERGIES TO ANY MEDICATIONS. PHYSICAL EXAMINATION: GENERAL: Today, the patient is a well-developed, well-nourished, thin male. He is alert. He is oriented. HEENT: Grossly within normal limits. NECK: Supple. Thyroid not palpable. ABDOMEN: Soft, nondistended, nontender. No CVA tenderness. No suprapubic tenderness at this hour. EXTREMITIES: He has full range of motion of both upper and lower extremities. No leg edema or calf tenderness present. GENITALIA: The patient is not circumcised with normal glans and meatus. No rashes or lesions visualized. The testes are down bilaterally, nontender without any masses. RECTAL: Normal rectal tone without fluctuance or masses. Prostate is average sized, smooth, symmetrical and nontender without nodules or indurations with a palpable median sulcus. LABORATORY DATA: His laboratory evaluation today 07/20/2017 shows a white count unchanged from his admission roughly 13.8, hemoglobin of 11.0, and a hematocrit 31.4, platelet count was 188, 000. Chem profile shows sodium of 137, potassium 3.6, chloride 105, CO2 21, BUN and creatinine of 27 and 1.6 respectively, which is improved from his admission with IV hydration. His admitting creatinine was 2.3 and his current creatinine is 1.6. His GFR is now 45, which is up from 30. His random glucose is 86, calcium is 7.6, and his total bilirubin is 0.6, AST 41, ALT 40. Alkaline phosphatase has decreased from 356 on admission to 275. His PSA was 0.7, which is normal of his age of 57. His urinalysis on 07/18/2017 showed the color was yellow, clarity was hazy, pH was 6.0, specific gravity 1.005, protein was 1+, glucose was normal, ketones negative, blood was 2+. Nitrite was negative, bilirubin was negative, urobilinogen normal. Leukocyte esterase was 3+ with 120 wbc's and 59 rbc's and many bacteria per high-power field. Urine culture on 07/18/2017 was positive for E. coli, sensitive to Rocephin and also sensitive to almost oral antibiotics including ampicillin, Bactrim, and Cipro. The patient is currently on IV Rocephin and seems to be responding at this time regarding his symptoms. The patient also denies any history of any hematuria. DIAGNOSTIC IMPRESSION AT THIS TIME: 1. Escherichia coli urinary tract infection. 2. Sepsis. Chest x-ray showing chronic obstructive pulmonary disease. PLAN FOR THIS PATIENT: Continue the patient on his current IV antibiotic regimen, which currently includes Rocephin. The patient currently is very comfortable at this hour and not complaining of any pain. We can repeat the urinalysis in a day or two and a urine culture. Oliver Campos MD
--- NOTE | 2017-07-20 23:27 | CARD ---
APPROVED REPORT EXAM: Two-dimensional and M-mode echocardiogram with Doppler and color Doppler. Other Information Quality : GoodRhythm : INDICATION [id number] 2D DIMENSIONS IVSd0.9 (0.7-1.1cm)LVDd4.5 (3.9-5.9cm) PWd0.9 (0.7-1.1cm)LVDs3.1 (2.5-4.0cm) FS (%) 31.0 %LVEF (%)58.9 (>50%) M-Mode DIMENSIONS Left Atrium (MM)3.83 (2.5-4.0cm)Aortic Root3.36 (2.2-3.7cm) Aortic Cusp Exc.2.45 (1.5-2.0cm) Mitral Valve MV E Phvgsppg025.1cm/sMV A Npzinkom343.2cm/sE/A ratio1.0 TDI E/Lateral E'0.0E/Medial E'0.0 Tricuspid Valve TR Peak [id number]/sTR Peak Gr.[id number] LEFT VENTRICLE The left ventricle is normal size. There is normal left ventricular wall thickness. Left ventricle systolic function is normal. The Ejection Fraction is 55-60%. There is normal LV segmental wall motion. The left ventricular diastolic function is normal. No left ventricle thrombus noted on this study. RIGHT VENTRICLE The right ventricle is normal size. The right ventricular systolic function is normal. ATRIA The left atrium size is normal. The right atrium size is normal. AORTIC VALVE The aortic valve is mildly sclerotic. The aortic valve is trileaflet. No aortic regurgitation is present. There is no aortic valvular stenosis. There is no aortic valvular vegetation. MITRAL VALVE Mitral annular calcification is mild. There is no evidence of mitral valve prolapse. There is no mitral valve stenosis. Mitral regurgitation is mild. TRICUSPID VALVE The tricuspid valve is normal in structure. There is mild to moderate tricuspid regurgitation. Right ventricular systolic pressure is estimated at 30-40 mmHg. There is no pulmonary hypertension. There is no tricuspid valve prolapse or vegetation. There is no tricuspid valve stenosis. PULMONIC VALVE The pulmonary valve is normal in structure. There is trace pulmonic valvular regurgitation. There is no pulmonic valvular stenosis. GREAT VESSELS The aortic root is normal in size. The IVC is normal in size and collapses >50% with inspiration. PERICARDIAL EFFUSION There is no pericardial effusion. There is no pleural effusion. <Conclusion> The left ventricle is normal size. Left ventricle systolic function is normal. The Ejection Fraction is 55-60%. The left ventricular diastolic function is normal. The right ventricular systolic function is normal. The left atrium size is normal. The right atrium size is normal. Mitral regurgitation is mild. There is mild to moderate tricuspid regurgitation. There is trace pulmonic valvular regurgitation.
[2017-07-21 07:33] LABS: POTASSIUM 2.8 mmol/L (3.6-5.2)
[2017-07-21 07:36] LABS: ALB/GLOB RATIO 0.7 (1.0-2.1); BILIRUBIN,TOTAL 0.5 mg/dL (0.2-1.3); TOTAL PROTEIN 6.6 g/dL (6.3-8.3)
[2017-07-21 07:37] LABS: CALCIUM 7.5 mg/dl (8.6-10.4)
[2017-07-21 07:39] LABS: BASO # 0.1 K/uL (0.0-0.2); BASO % 0.6 % (0.0-2.0); EOS # 0.1 K/uL (0.0-0.7); HEMATOCRIT 30.4 % (35.0-51.0); LYMPH # 1.7 K/uL (1.0-4.3); LYMPH % 14.1 % (20.0-40.0); MEAN CELL VOLUME 95.7 fL (80.0-94.0); MEAN CORPUSCULAR HEMOGLOBIN 34.1 pg (27.0-31.0); MEAN CORPUSCULAR HGB CONC 35.7 g/dL (33.0-37.0); MEAN PLATELET VOLUME 8.2 fL (7.2-11.7); MONO # 1.6 K/uL (0.0-0.8); MONO % 13.6 % (0.0-10.0); NRBC % 0.1 % (0.0-2.0); RED CELL DISTRIBUTION WIDTH 14.2 % (11.5-14.5); WHITE BLOOD COUNT 12.1 K/uL (4.8-10.8)
[2017-07-21] MEDS: Fluticasone-Salmeterol 250-50mcg Diskus INH SCH ×2 (08:46→19:33)
[2017-07-21] MEDS ORDERED: Influenza Vaccine 60 mcg/0.5 mL SYR (4YR UP) IM ONE (10:00)
[2017-07-21] MEDS ORDERED: Potassium Chloride 20 mEq ER Tab PO SCH (10:00)
[2017-07-21] MEDS: Saccharomyces Boulardi 250 mg Cap PO SCH ×2 (10:41→18:07)
[2017-07-21] MEDS: Potassium Chloride 20 mEq ER Tab PO SCH ×2 (10:41→14:34)
[2017-07-21] MEDS: Pantoprazole 40 mg EC Tab PO SCH (10:41)
[2017-07-21 11:45] LABS: RBC URINE 9 /hpf (0-3); URINE BACTERIA RARE (<OCC); URINE BILIRUBIN NEGATIVE (NEGATIVE); URINE BLOOD 1+ (NEGATIVE); URINE COLOR Yellow (YELLOW); URINE GLUCOSE (UA) NORMAL (Normal); URINE KETONE NEGATIVE (NEGATIVE); URINE LEUKOCYTE ESTERASE 3+ Leu/uL (Negative); URINE PROTEIN NEGATIVE (NEGATIVE); URINE UROBILINOGEN NORMAL mg/dL (0.2-1.0); WBC URINE 50 /hpf (0-5)
--- NOTE | 2017-07-21 12:04 | CP.PCM.PN ---
Subjective - Date & Time of Evaluation Date of Evaluation: 07/21/17 Time of Evaluation: 12:02 - Subjective Subjective: seen and examined denies any nausea vomiting diarrhea sob chest pain headache dizziness fevers chills rash urine cx - e coli renal us noted. Rt kidney smaller than left Labs noted Objective - Vital Signs/Intake and Output Vital Signs (last 24 hours): Temp Pulse Resp BP Pulse Ox 99.9 F H 85 20 142/78 97 07/21/17 07:00 07/21/17 07:00 07/21/17 07:00 07/21/17 07:00 07/21/17 07:00 Intake and Output: 07/21/17 07/21/17 06:59 18:59 Intake Total 970 Balance 970 - Medications Medications: Current Medications Acetaminophen (Tylenol 325mg Tab) 650 mg PO Q6 PRN PRN Reason: Fever or pain Last Admin: 07/21/17 06:54 Dose: 650 mg Albuterol/Ipratropium (Duoneb 3 Mg/0.5 Mg (3 Ml) Ud) 3 ml INH RQ6 PRN PRN Reason: Shortness of Breath Heparin Sodium (Porcine) (Heparin) 5,000 units SC Q12 [facility] Last Admin: 07/21/17 10:42 Dose: 5,000 units Ceftriaxone Sodium (Rocephin Iv 1 Gm Duplex) 50 mls @ 100 mls/hr IVPB Q24H [facility] Last Admin: 07/20/17 16:44 Dose: 100 mls/hr Pantoprazole Sodium (Protonix Ec Tab) 40 mg PO DAILY [facility] Last Admin: 07/21/17 10:41 Dose: 40 mg Potassium Chloride (K-Dur 20 Meq Er Tab) 40 meq PO Q4H [facility] Stop: 07/21/17 13:46 Last Admin: 07/21/17 10:41 Dose: 40 meq Saccharomyces Boulardii (Florastor) 250 mg PO BID [facility] Last Admin: 07/21/17 10:41 Dose: 250 mg Fluticasone/Salmeterol (Advair Diskus 250/50) 1 puff INH RQ12 [facility] Last Admin: 07/21/17 08:46 Dose: 1 puff - Labs Labs: 07/21/17 07:10 07/21/17 07:10 - Constitutional Appears: Non-toxic, No Acute Distress - Head Exam Head Exam: NORMAL INSPECTION - Eye Exam Eye Exam: Normal appearance - ENT Exam ENT Exam: Mucous Membranes Moist, Normal Exam - Neck Exam Neck Exam: Normal Inspection - Respiratory Exam Respiratory Exam: Clear to Ausculation Bilateral, NORMAL BREATHING PATTERN - Cardiovascular Exam Cardiovascular Exam: REGULAR RHYTHM, RRR - GI/Abdominal Exam GI & Abdominal Exam: Soft, Normal Bowel Sounds - Extremities Exam Extremities Exam: Normal Inspection - Neurological Exam Neurological Exam: Alert, Awake, Oriented x3 Assessment and Plan (1) RADHA (acute kidney injury) Status: Acute (2) Hypokalemia Status: Acute (3) Metabolic acidosis Status: Acute (4) Renal insufficiency Status: Acute (5) UTI (urinary tract infection) Status: Acute - Assessment and Plan (Free Text) Assessment: improving renal function. change ivf to 1/2NS unclear etiology of hypokalemia in the setting of renal failure and met acidosis ? Check aldosterone / renin levels in am tomorrow. antibiotics / supportive care K replacement noted
--- NOTE | 2017-07-21 13:39 | CP.PCM.PN ---
<Isadora Nielsen - Last Filed: 07/21/17 13:52> Subjective - Date & Time of Evaluation Date of Evaluation: 07/21/17 Time of Evaluation: 13:34 - Subjective Subjective: Internal Medicine Progress Note for Dr. Chester Patient seen and examined at bedside. Patient had a fever of 102.1 F. No other acute events overnight. Patient states he has no difficulty with diarrhea, chest pain, difficulty breathing, abdominal pain. Patient denies blood in urine and stool. Objective - Vital Signs/Intake and Output Vital Signs (last 24 hours): Temp Pulse Resp BP Pulse Ox 99.9 F H 85 20 142/78 97 07/21/17 07:00 07/21/17 07:00 07/21/17 07:00 07/21/17 07:00 07/21/17 07:00 Intake and Output: 07/21/17 07/21/17 06:59 18:59 Intake Total 970 Balance 970 - Medications Medications: Current Medications Acetaminophen (Tylenol 325mg Tab) 650 mg PO Q6 PRN PRN Reason: Fever or pain Last Admin: 07/21/17 06:54 Dose: 650 mg Albuterol/Ipratropium (Duoneb 3 Mg/0.5 Mg (3 Ml) Ud) 3 ml INH RQ6 PRN PRN Reason: Shortness of Breath Heparin Sodium (Porcine) (Heparin) 5,000 units SC Q12 [facility] Last Admin: 07/21/17 10:42 Dose: 5,000 units Ceftriaxone Sodium (Rocephin Iv 1 Gm Duplex) 50 mls @ 100 mls/hr IVPB Q24H [facility] Last Admin: 07/20/17 16:44 Dose: 100 mls/hr Sodium Chloride (Sodium Chloride 0.9%) 1,000 mls @ 70 mls/hr IV .[id number] [facility] Pantoprazole Sodium (Protonix Ec Tab) 40 mg PO DAILY [facility] Last Admin: 07/21/17 10:41 Dose: 40 mg Potassium Chloride (K-Dur 20 Meq Er Tab) 40 meq PO Q4H [facility] Stop: 07/21/17 13:46 Last Admin: 07/21/17 10:41 Dose: 40 meq Saccharomyces Boulardii (Florastor) 250 mg PO BID [facility] Last Admin: 07/21/17 10:41 Dose: 250 mg Fluticasone/Salmeterol (Advair Diskus 250/50) 1 puff INH RQ12 [facility] Last Admin: 07/21/17 08:46 Dose: 1 puff - Labs Labs: 07/21/17 07:10 07/21/17 07:10 - Constitutional Appears: Non-toxic - Head Exam Head Exam: NORMAL INSPECTION - Eye Exam Eye Exam: EOMI, Normal appearance - ENT Exam ENT Exam: Mucous Membranes Moist - Neck Exam Neck Exam: Full ROM - Cardiovascular Exam Cardiovascular Exam: REGULAR RHYTHM, +S1, +S2 - GI/Abdominal Exam GI & Abdominal Exam: Soft. absent: Guarding, Rigid, Tenderness - Extremities Exam Extremities Exam: absent: Pedal Edema - Back Exam Back Exam: Full ROM. absent: CVA tenderness (L), CVA tenderness (R), vertebral tenderness - Neurological Exam Neurological Exam: Alert, Awake, Oriented x3 - Psychiatric Exam Psychiatric exam: Normal Affect, Normal Mood - Skin Skin Exam: Dry, Intact, Normal Color Assessment and Plan - Assessment and Plan (Free Text) Assessment: Sepsis 2/2 UTI/Pyelonephritis/cystitis with positive CVA tenderness 07/19: febrile Tmax 100.9F. WBC decreased to 13.9 today, no bands. CXR - Findings suspicious for COPD/ emphysema. CT Abd/Pelvis w/o PO or IV contrast: mild to moderate diffuse enlargement of R kidney without stone. Sigmoid colon wall thickening. Distended bladder contains free air. 07/19 VB.31 pO2/pCO2/HCO3/lactate 34/30/16.2/0.8 Urine Cx: E. Coli, pansensitive 07/20 Renal US: right kidney < left kidney Renal function improving. IVF changed to 1/[address] Hager Per ID consult Dr. De Leon: can be treated with monotherapy- rocephin eval in progress f/u Urology consult UA: cloudy (non-transparent), 1+ protein, 2+ blood, 3+ Leukocyte esterase, many bacteria RPR - nonreactive Hep Bs Ab - negative HIV Ab screen - negative PSA - 1.26 Procalcitonin 15.67 H Received one dose of Rocephin 1gm and Azithromycin in ED Started on Doxycycline 100mg IVPB Q12H and Zosyn 2.25gm IVPB Q8H Echo: EF 55-60%, mild to moderate Tricuspid regurgitation, trace pulmonic valvular regurgitation f/u blood culture x4 (2 sets of 2) f/u GC/Chlamydia Consulted ID Dr De Leon: Add florastor 250mg PO daily Hypokalemia, repleted f/u BMP in AM with mag and phos Per Nephrology: unclear if hypokalemia is due to renal failur and metabolic acidosis. AM aldosterone/renine ordered Hypokalemia, repleted continue antibiotics / supportive care Non-Anion Gap Metabolic Acidosis Added bicarb to IVF NS, 3 amps of HCO3 in 850ml Acute on Chronic Kidney Disease GFR 39, likely chronic kidney disease 07/20 f/u renal ultrasound Nephrology Consult Dr. Sp Devries: f/u recommendations BUN/Cr improving with IVF Avoid nephrotoxic medications monitor CBCs Rocephin [address] De Leon started on 07/20 IVF1/2 NS @100cc/hr COPD/Emphysema As seen on Chest X-ray Advair 250/50 INH 1puff q12h Duonebs INH q6h prn SOB Prophylaxis Heparin 5000units SC Q8H Protonix 40mg PO daily SCDs discuss with Dr. Nemo Nielsen, DO PGY1 <Aminata Chester V - Last Filed: 07/21/17 18:04> Objective - Vital Signs/Intake and Output Vital Signs (last 24 hours): Temp Pulse Resp BP Pulse Ox 99 F 79 18 143/77 96 07/21/17 17:18 07/21/17 15:21 07/21/17 15:21 07/21/17 15:21 07/21/17 15:21 Intake and Output: 07/21/17 07/21/17 06:59 18:59 Intake Total 970 1240 Output Total 1100 Balance 970 140 - Medications Medications: Current Medications Acetaminophen (Tylenol 325mg Tab) 650 mg PO Q6 PRN PRN Reason: Fever or pain Last Admin: 07/21/17 14:34 Dose: 650 mg Albuterol/Ipratropium (Duoneb 3 Mg/0.5 Mg (3 Ml) Ud) 3 ml INH RQ6 PRN PRN Reason: Shortness of Breath Heparin Sodium (Porcine) (Heparin) 5,000 units SC Q12 [facility] Last Admin: 07/21/17 10:42 Dose: 5,000 units Ceftriaxone Sodium (Rocephin Iv 1 Gm Duplex) 50 mls @ 100 mls/hr IVPB Q24H [facility] Last Admin: 07/21/17 16:50 Dose: 100 mls/hr Sodium Chloride (Sodium Chloride 0.9%) 1,000 mls @ 70 mls/hr IV .[id number] [facility] Last Admin: 07/21/17 14:35 Dose: 70 mls/hr Sodium Chloride (Sodium Chloride 0.45%) 1,000 mls @ 100 mls/hr IV .Q10H [facility] Last Admin: 07/21/17 15:30 Dose: Not Given Pantoprazole Sodium (Protonix Ec Tab) 40 mg PO DAILY [facility] Last Admin: 07/21/17 10:41 Dose: 40 mg Saccharomyces Boulardii (Florastor) 250 mg PO BID [facility] Last Admin: 07/21/17 10:41 Dose: 250 mg Fluticasone/Salmeterol (Advair Diskus 250/50) 1 puff INH RQ12 [facility] Last Admin: 07/21/17 08:46 Dose: 1 puff - Labs Labs: 07/21/17 07:10 07/21/17 07:10 Attending/Attestation - Attestation I have personally seen and examined this patient.: Yes I have fully participated in the care of the patient.: Yes I have reviewed all pertinent clinical information, including history, physical exam and plan: Yes Notes (Text): Patient seen, examined with day-time resident during rounds this morning. Patient is primarily [place] speaking. Patient denies headache, denies chest pain, denies palpitations, denies shortness of breathe, denies abdominal pain, denies nausea, denies vomitting, denies numbness, denies tingling. Urology eval ordered given air noted on CT abdomen/Pelvis-->pending. Patient spiked fever over night and spiked fever today. patient's blood, urine cultures re-ordered. Patient influenza/pneumonia vaccines held in light of patient fighting off infection. Assessment/Plan 1). Sepsis likely secondary to UTI/Pyelonephritis/Cystitis * Infectious Disease (Dr. De Leon) on board-->help appreciated * Nephrology (Dr. Bell) on board-->help appreciated * Urology (Dr. Campos) on board-->will see the patient tomorrow * CT Abdomen/Pelvis (07/19/17): mild to moderate diffuse enlargement of the right kidney. Mildly dilated right kidney collecting system without evidence of obstructing stone. Mild anasarca. Sigmoid colon wall thickening of uncertain etiology. mildly to moderately distended bladder contrain moderate amount of free air. Mild dilated small bowel loops without evidence of high grade bowel obstruction. * Blood cultures (07/18/17): no growth after 48hours X2 * Blood cultures (07/18/17): no growth after 48hours X2 * Blood cultures (07/18/17): no growth after 48hours X2 * Blood cultures (07/18/17): no growth after 48hours X2 * Urine culture (07/18/17): E. Coli-->leon sensitive * Switched to Rocephin 1 gram IV Q 24 H(active since 07/20/17); prior on Doxcycline and Zosyn * Repeat blood and urine in light of fever spikes 2). Hypokalemia * repleted * Per nephrology, f/u [facility] * patient is not having diarrhea nor vomitting to explain hypokalemia 3). NonAnion Gap Metabolic Acidosis * Secondary to sepsis * improved 4). Acute Renal Failure (on Chronic?) * Nephrology (Dr. Bell) on board-->help appreciated * Renal US (07/20): unremarkable * improving 5). COPD/Emphysema * Chest xray (07/18/17): findings suspicious for COPD and emphysema * He continues to smoke 5 to 10 cig/day for many years; not smoking since in the hospital * Advair 250/50 1 puff inhaled Q 12hours (he should be discharged on Breo Elipta as this will be cheaper out of pocket cost) * Duoneb 3ml INH RQ6H PRN shortness of breathe 6). Sigmoid Colon Thickening * He never has had a Colonoscopy and will need one upon discharge as an outpatient 7). Prophylaxis * Tylenol 650 mg PO every 6 hours fever/pain * Heparin 5000 units subq 12 hours * Florastor 250mg PO bid * Protonix 40mg PO daily
[2017-07-21] MEDS: Sodium Chloride 0.9% 1,000 ML IV SCH (14:35)
[2017-07-21] MEDS: Sodium Chloride 0.45% 1,000 ML IV SCH (15:30)
[2017-07-21] MEDS: cefTRIAXone IV 1 gm in Dextros 50 ML IVPB SCH (16:50)
[2017-07-22 00:44] VITALS: RESP 20
[2017-07-22] MEDS: Sodium Chloride 0.9% 1,000 ML IV SCH (05:26)
[2017-07-22] MEDS: Sodium Chloride 0.45% 1,000 ML IV SCH ×4 (05:29→22:24)
[2017-07-22] MEDS: Fluticasone-Salmeterol 250-50mcg Diskus INH SCH ×2 (07:45→19:21)
[2017-07-22 07:46] LABS: BASO # 0.1 K/uL (0.0-0.2); BASO % 0.6 % (0.0-2.0); EOS # 0.3 K/uL (0.0-0.7); EOS % 2.2 % (0.0-4.0); HEMATOCRIT 33.7 % (35.0-51.0); LYMPH # 1.9 K/uL (1.0-4.3); LYMPH % 15.5 % (20.0-40.0); MEAN CELL VOLUME 96.5 fL (80.0-94.0); MEAN CORPUSCULAR HEMOGLOBIN 34.2 pg (27.0-31.0); MEAN CORPUSCULAR HGB CONC 35.4 g/dL (33.0-37.0); MEAN PLATELET VOLUME 7.9 fL (7.2-11.7); MONO # 1.2 K/uL (0.0-0.8); MONO % 10.2 % (0.0-10.0); RED CELL DISTRIBUTION WIDTH 14.4 % (11.5-14.5); WHITE BLOOD COUNT 12.2 K/uL (4.8-10.8)
[2017-07-22 07:56] LABS: POTASSIUM 3.4 mmol/L (3.6-5.2)
[2017-07-22 07:58] LABS: ALB/GLOB RATIO 0.7 (1.0-2.1); BILIRUBIN,TOTAL 0.6 mg/dL (0.2-1.3); TOTAL PROTEIN 6.9 g/dL (6.3-8.3)
[2017-07-22 07:59] LABS: CALCIUM 7.6 mg/dl (8.6-10.4); MAGNESIUM 1.7 mg/dL (1.6-2.3)
[2017-07-22] MEDS: Pantoprazole 40 mg EC Tab PO SCH (09:49)
[2017-07-22] MEDS: Saccharomyces Boulardi 250 mg Cap PO SCH ×2 (09:49→18:25)
--- NOTE | 2017-07-22 15:56 | CP.PCM.PN ---
Subjective - Date & Time of Evaluation Date of Evaluation: 07/22/17 Time of Evaluation: 15:56 - Subjective Subjective: Internal Medicine Progress Note for Dr. Chester Patient seen and examined at bedside. Patient had a fever of 101.0 F overnight. No other acute events overnight. Patient states he has no difficulty with diarrhea, chest pain, difficulty breathing, abdominal pain. Patient denies blood in urine and stool. 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, and will undergo ultrasound studies of lower extremities Objective - Vital Signs/Intake and Output Vital Signs (last 24 hours): Temp Pulse Resp BP Pulse Ox 99.6 F 77 20 142/87 97 07/22/17 14:10 07/22/17 12:00 07/22/17 07:00 07/22/17 07:00 07/22/17 07:00 Intake and Output: 07/22/17 07/22/17 06:59 18:59 Intake Total 1560 1200 Output Total 1100 Balance 460 1200 - Medications Medications: Current Medications Acetaminophen (Tylenol 325mg Tab) 650 mg PO Q6 PRN PRN Reason: Fever or pain Last Admin: 07/21/17 23:57 Dose: 650 mg Albuterol/Ipratropium (Duoneb 3 Mg/0.5 Mg (3 Ml) Ud) 3 ml INH RQ6 PRN PRN Reason: Shortness of Breath Heparin Sodium (Porcine) (Heparin) 5,000 units SC Q12 [facility] Last Admin: 07/22/17 09:50 Dose: 5,000 units Ceftriaxone Sodium (Rocephin Iv 1 Gm Duplex) 50 mls @ 100 mls/hr IVPB Q24H [facility] Last Admin: 07/21/17 16:50 Dose: 100 mls/hr Sodium Chloride (Sodium Chloride 0.45%) 1,000 mls @ 100 mls/hr IV .Q10H [facility] Last Admin: 07/22/17 12:07 Dose: 100 mls/hr Pantoprazole Sodium (Protonix Ec Tab) 40 mg PO DAILY [facility] Last Admin: 07/22/17 09:49 Dose: 40 mg Saccharomyces Boulardii (Florastor) 250 mg PO BID [facility] Last Admin: 07/22/17 09:49 Dose: 250 mg Fluticasone/Salmeterol (Advair Diskus 250/50) 1 puff INH RQ12 [facility] Last Admin: 07/22/17 07:45 Dose: 1 puff - Labs Labs: 07/22/17 07:26 07/22/17 07:26 - Constitutional Appears: Non-toxic - Head Exam Head Exam: NORMAL INSPECTION - Eye Exam Eye Exam: EOMI, Normal appearance - ENT Exam ENT Exam: Mucous Membranes Moist - Neck Exam Neck Exam: Full ROM - Respiratory Exam Respiratory Exam: NORMAL BREATHING PATTERN. absent: Accessory Muscle Use, Respiratory Distress - Cardiovascular Exam Cardiovascular Exam: REGULAR RHYTHM, +S1, +S2. absent: Bradycardia, Tachycardia - Extremities Exam Extremities Exam: Full ROM. absent: Pedal Edema Additional comments: clubbed fingers noted - Neurological Exam Neurological Exam: Alert, Awake, Oriented x3 - Psychiatric Exam Psychiatric exam: Normal Affect, Normal Mood. absent: Depressed - Skin Skin Exam: Dry, Intact, Normal Color, Warm Assessment and Plan - Assessment and Plan (Free Text) Assessment: Urine Cx: yeast Sepsis 2/2 UTI/Pyelonephritis/cystitis with positive CVA tenderness 07/19: febrile Tmax 100.9F. WBC decreased to 13.9 today, no bands. CXR - Findings suspicious for COPD/ emphysema. CT Abd/Pelvis w/o PO or IV contrast: mild to moderate diffuse enlargement of R kidney without stone. Sigmoid colon wall thickening. Distended bladder contains free air. 07/19 VB.31 pO2/pCO2/HCO3/lactate 34/30/16.2/0.8 Urine Cx: E. Coli, pansensitive 07/20 Renal US: right kidney < left kidney Renal function improving. IVF changed to 1/[address] Hager Per ID consult Dr. De Leon: can be treated with monotherapy- rocephin eval in progress f/u Urology consult UA: cloudy (non-transparent), 1+ protein, 2+ blood, 3+ Leukocyte esterase, many bacteria RPR - nonreactive Hep Bs Ab - negative HIV Ab screen - negative PSA - 1.26 Procalcitonin 15.67 H Received one dose of Rocephin 1gm and Azithromycin in ED Started on Doxycycline 100mg IVPB Q12H and Zosyn 2.25gm IVPB Q8H Echo: EF 55-60%, mild to moderate Tricuspid regurgitation, trace pulmonic valvular regurgitation f/u blood culture x4 (2 sets of 2) f/u GC/Chlamydia Consulted ID Dr De Leon: Add florastor 250mg PO daily Fevers, clubbed fingers LAURA ESR RF XRAY of hands, f/u Hypokalemia, repleted f/u BMP in AM with mag and phos Per Nephrology: unclear if hypokalemia is due to renal failur and metabolic acidosis. AM aldosterone/renine ordered Hypokalemia, repleted continue antibiotics / supportive care Non-Anion Gap Metabolic Acidosis Added bicarb to IVF NS, 3 amps of HCO3 in 850ml Acute on Chronic Kidney Disease GFR 39, likely chronic kidney disease 07/20 f/u renal ultrasound Nephrology Consult Dr. Sp Devries: f/u recommendations BUN/Cr improving with IVF Avoid nephrotoxic medications monitor CBCs Rocephin [address] De Leon started on 07/20 IVF1/2 NS @100cc/hr COPD/Emphysema As seen on Chest X-ray Advair 250/50 INH 1puff q12h Duonebs INH q6h prn SOB Prophylaxis Heparin 5000units SC Q8H Protonix 40mg PO daily SCDs discuss with Dr. Nemo Nielsen, DO PGY1
--- NOTE | 2017-07-22 16:09 | CP.PCM.PN ---
Subjective - Date & Time of Evaluation Date of Evaluation: 07/22/17 Time of Evaluation: 15:00 - Subjective Subjective: feels better no dysuria no flank pain or suprapubic pain Objective - Vital Signs/Intake and Output Vital Signs (last 24 hours): Temp Pulse Resp BP Pulse Ox 99.6 F 77 20 142/87 97 07/22/17 14:10 07/22/17 12:00 07/22/17 07:00 07/22/17 07:00 07/22/17 07:00 Intake and Output: 07/22/17 07/22/17 06:59 18:59 Intake Total 1560 1200 Output Total 1100 Balance 460 1200 - Medications Medications: Current Medications Acetaminophen (Tylenol 325mg Tab) 650 mg PO Q6 PRN PRN Reason: Fever or pain Last Admin: 07/21/17 23:57 Dose: 650 mg Albuterol/Ipratropium (Duoneb 3 Mg/0.5 Mg (3 Ml) Ud) 3 ml INH RQ6 PRN PRN Reason: Shortness of Breath Heparin Sodium (Porcine) (Heparin) 5,000 units SC Q12 [facility] Last Admin: 07/22/17 09:50 Dose: 5,000 units Ceftriaxone Sodium (Rocephin Iv 1 Gm Duplex) 50 mls @ 100 mls/hr IVPB Q24H [facility] Last Admin: 07/21/17 16:50 Dose: 100 mls/hr Sodium Chloride (Sodium Chloride 0.45%) 1,000 mls @ 100 mls/hr IV .Q10H [facility] Last Admin: 07/22/17 12:07 Dose: 100 mls/hr Pantoprazole Sodium (Protonix Ec Tab) 40 mg PO DAILY [facility] Last Admin: 07/22/17 09:49 Dose: 40 mg Saccharomyces Boulardii (Florastor) 250 mg PO BID [facility] Last Admin: 07/22/17 09:49 Dose: 250 mg Fluticasone/Salmeterol (Advair Diskus 250/50) 1 puff INH RQ12 [facility] Last Admin: 07/22/17 07:45 Dose: 1 puff - Labs Labs: 07/22/17 07:26 07/22/17 07:26 - Head Exam Head Exam: ATRAUMATIC - Eye Exam Eye Exam: EOMI - ENT Exam ENT Exam: Mucous Membranes Moist - Neck Exam Neck Exam: Full ROM. absent: Lymphadenopathy - Respiratory Exam Respiratory Exam: Clear to Ausculation Bilateral. absent: Accessory Muscle Use - Cardiovascular Exam Cardiovascular Exam: REGULAR RHYTHM. absent: Rubs - GI/Abdominal Exam GI & Abdominal Exam: Soft. absent: Tenderness - Neurological Exam Neurological Exam: Alert, Awake - Psychiatric Exam Psychiatric exam: Normal Affect Assessment and Plan - Assessment and Plan (Free Text) Assessment: uti/pyelonephritis with assymetric kidney size and amy better with ivf and ab await consult will follow
[2017-07-22] MEDS: cefTRIAXone IV 1 gm in Dextros 50 ML IVPB SCH (18:26)
--- NOTE | 2017-07-22 18:43 | CP.PCM.PN ---
Subjective - Date & Time of Evaluation Date of Evaluation: 07/22/17 Time of Evaluation: 06:00 - Subjective Subjective: no fever Objective - Vital Signs/Intake and Output Vital Signs (last 24 hours): Temp Pulse Resp BP Pulse Ox 99.5 F 82 20 130/74 98 07/22/17 15:23 07/22/17 15:23 07/22/17 15:23 07/22/17 15:23 07/22/17 15:23 Intake and Output: 07/22/17 07/22/17 06:59 18:59 Intake Total 1560 1200 Output Total 1100 Balance 460 1200 - Medications Medications: Current Medications Acetaminophen (Tylenol 325mg Tab) 650 mg PO Q6 PRN PRN Reason: Fever or pain Last Admin: 07/21/17 23:57 Dose: 650 mg Albuterol/Ipratropium (Duoneb 3 Mg/0.5 Mg (3 Ml) Ud) 3 ml INH RQ6 PRN PRN Reason: Shortness of Breath Heparin Sodium (Porcine) (Heparin) 5,000 units SC Q12 [facility] Last Admin: 07/22/17 09:50 Dose: 5,000 units Ceftriaxone Sodium (Rocephin Iv 1 Gm Duplex) 50 mls @ 100 mls/hr IVPB Q24H [facility] Last Admin: 07/22/17 18:26 Dose: 100 mls/hr Sodium Chloride (Sodium Chloride 0.45%) 1,000 mls @ 100 mls/hr IV .Q10H [facility] Last Admin: 07/22/17 12:07 Dose: 100 mls/hr Pantoprazole Sodium (Protonix Ec Tab) 40 mg PO DAILY [facility] Last Admin: 07/22/17 09:49 Dose: 40 mg Saccharomyces Boulardii (Florastor) 250 mg PO BID [facility] Last Admin: 07/22/17 18:25 Dose: 250 mg Fluticasone/Salmeterol (Advair Diskus 250/50) 1 puff INH RQ12 [facility] Last Admin: 07/22/17 07:45 Dose: 1 puff - Labs Labs: 07/22/17 07:26 07/22/17 07:26 - Constitutional Appears: Non-toxic - Head Exam Head Exam: NORMOCEPHALIC - Eye Exam Eye Exam: PERRL - ENT Exam ENT Exam: Mucous Membranes Dry - Neck Exam Neck Exam: absent: Lymphadenopathy - Respiratory Exam Respiratory Exam: Decreased Breath Sounds - Cardiovascular Exam Cardiovascular Exam: REGULAR RHYTHM - GI/Abdominal Exam GI & Abdominal Exam: Distended Assessment and Plan (1) RADHA (acute kidney injury) Status: Acute (2) Renal insufficiency Status: Acute (3) UTI (urinary tract infection) Status: Acute
[2017-07-23] MEDS: Sodium Chloride 0.45% 1,000 ML IV SCH ×3 (06:44→22:20)
[2017-07-23] MEDS: Fluticasone-Salmeterol 250-50mcg Diskus INH SCH ×2 (08:04→20:04)
--- NOTE | 2017-07-23 09:34 | RAD ---
PROCEDURE: Bilateral hand radiographs. HISTORY: clubbing of hands COMPARISON: None. FINDINGS: BONES: Right Hand: Mild distal interphalangeal joint space narrowing digit most notable. Deformity of the 2nd middle phalanx consistent with old healed fracture here Left Hand: No significant appearing osteoarthritic changes. JOINTS: Right Hand: As above Left Hand: As above SOFT TISSUES: Right Hand: Normal. Left Hand: Normal. OTHER FINDINGS: No erosions noted IMPRESSION: Deformity 2nd middle phalanx consistent with old healed fracture here volar aspect-lateral view Mild degenerative joint space narrowing- mild osteoarthritic changes-right hand greater than left-right 3rd DIP joint most notable.
[2017-07-23] MEDS: Saccharomyces Boulardi 250 mg Cap PO SCH ×2 (10:44→17:25)
[2017-07-23] MEDS: Pantoprazole 40 mg EC Tab PO SCH (10:44)
--- NOTE | 2017-07-23 11:17 | CP.PCM.PN ---
Subjective - Date & Time of Evaluation Date of Evaluation: 07/23/17 Time of Evaluation: 11:15 - Subjective Subjective: Feels better creat improving afebrile - on IV ABs for UTI no new complaints Objective - Vital Signs/Intake and Output Vital Signs (last 24 hours): Temp Pulse Resp BP Pulse Ox 99.4 F 76 20 107/69 96 07/23/17 09:08 07/23/17 09:08 07/23/17 09:08 07/23/17 09:08 07/23/17 09:08 Intake and Output: 07/23/17 07/23/17 06:59 18:59 Intake Total 2200 Output Total 900 Balance 1300 - Medications Medications: Current Medications Acetaminophen (Tylenol 325mg Tab) 650 mg PO Q6 PRN PRN Reason: Fever or pain Last Admin: 07/21/17 23:57 Dose: 650 mg Albuterol/Ipratropium (Duoneb 3 Mg/0.5 Mg (3 Ml) Ud) 3 ml INH RQ6 PRN PRN Reason: Shortness of Breath Heparin Sodium (Porcine) (Heparin) 5,000 units SC Q12 [facility] Last Admin: 07/23/17 10:44 Dose: 5,000 units Ceftriaxone Sodium (Rocephin Iv 1 Gm Duplex) 50 mls @ 100 mls/hr IVPB Q24H [facility] Last Admin: 07/22/17 18:26 Dose: 100 mls/hr Sodium Chloride (Sodium Chloride 0.45%) 1,000 mls @ 100 mls/hr IV .Q10H [facility] Last Admin: 07/23/17 06:44 Dose: Not Given Pantoprazole Sodium (Protonix Ec Tab) 40 mg PO DAILY [facility] Last Admin: 07/23/17 10:44 Dose: 40 mg Saccharomyces Boulardii (Florastor) 250 mg PO BID [facility] Last Admin: 07/23/17 10:44 Dose: 250 mg Fluticasone/Salmeterol (Advair Diskus 250/50) 1 puff INH RQ12 [facility] Last Admin: 07/22/17 19:21 Dose: 1 puff - Labs Labs: 07/22/17 07:26 07/22/17 07:26 - Constitutional Appears: No Acute Distress, Chronically Ill - Head Exam Head Exam: ATRAUMATIC, NORMAL INSPECTION - Eye Exam Eye Exam: EOMI, Normal appearance - Neck Exam Neck Exam: Normal Inspection. absent: Tenderness - Respiratory Exam Respiratory Exam: Clear to Ausculation Bilateral, NORMAL BREATHING PATTERN - Cardiovascular Exam Cardiovascular Exam: REGULAR RHYTHM, +S1 - GI/Abdominal Exam GI & Abdominal Exam: Soft. absent: Tenderness - Extremities Exam Extremities Exam: Normal Inspection. absent: Tenderness - Neurological Exam Neurological Exam: Awake, CN II-XII Intact - Skin Skin Exam: Dry, Warm Assessment and Plan (1) RADHA (acute kidney injury) Status: Acute (2) UTI (urinary tract infection) Status: Acute (3) Metabolic acidosis Status: Acute (4) Hypokalemia Status: Acute - Assessment and Plan (Free Text) Plan: continue to monitor lisa function- RADHA resolving
[2017-07-23 11:46] LABS: BASO # 0.1 K/uL (0.0-0.2); BASO % 0.8 % (0.0-2.0); EOS # 0.3 K/uL (0.0-0.7); EOS % 2.6 % (0.0-4.0); HEMATOCRIT 33.4 % (35.0-51.0); LYMPH # 2.3 K/uL (1.0-4.3); LYMPH % 17.7 % (20.0-40.0); MEAN CELL VOLUME 97.4 fL (80.0-94.0); MEAN CORPUSCULAR HEMOGLOBIN 34.1 pg (27.0-31.0); MEAN PLATELET VOLUME 8.4 fL (7.2-11.7); MONO % 7.7 % (0.0-10.0); NRBC % 0.1 % (0.0-2.0); RED CELL DISTRIBUTION WIDTH 14.6 % (11.5-14.5); WHITE BLOOD COUNT 12.9 K/uL (4.8-10.8)
[2017-07-23 12:01] LABS: CHLORIDE 105 mmol/L (98-107); SODIUM 133 mmol/L (132-148)
[2017-07-23 12:04] LABS: ALB/GLOB RATIO 0.7 (1.0-2.1); ALKALINE PHOSPHATASE 195 U/L (38-126); ALT/SGPT 40 U/L (21-72); AST/SGOT 52 U/L (17-59); BILIRUBIN,TOTAL 0.6 mg/dL (0.2-1.3); BLOOD UREA NITROGEN 21 mg/dL (9-20); CARBON DIOXIDE 19 mmol/L (22-30); GFR AFRICAN-AMERICAN > 60; GLUCOSE,RANDOM 89 mg/dL (75-110); TOTAL PROTEIN 7.3 g/dL (6.3-8.3)
[2017-07-23 12:05] LABS: CALCIUM 7.9 mg/dl (8.6-10.4)
[2017-07-23] MEDS: cefTRIAXone IV 1 gm in Dextros 50 ML IVPB SCH (17:25)
--- NOTE | 2017-07-23 17:44 | CP.PCM.PN ---
Subjective - Date & Time of Evaluation Date of Evaluation: 07/23/17 Time of Evaluation: 17:41 - Subjective Subjective: Progress note for Dr. Chester Patient seen at bedside no complaints overnight. Patient has no issue with urination, diarrhea, hematochezia, chest pain, shortness of breath, dysuria, hematuria, nausea, fever, chills, vomiting. Patient has no complaints at this time and would like to go home Objective - Vital Signs/Intake and Output Vital Signs (last 24 hours): Temp Pulse Resp BP Pulse Ox 98.9 F 66 20 122/74 99 07/23/17 15:09 07/23/17 15:30 07/23/17 15:09 07/23/17 15:09 07/23/17 15:09 Intake and Output: 07/23/17 07/23/17 06:59 18:59 Intake Total 2200 1200 Output Total 900 Balance 1300 1200 - Medications Medications: Current Medications Acetaminophen (Tylenol 325mg Tab) 650 mg PO Q6 PRN PRN Reason: Fever or pain Last Admin: 07/21/17 23:57 Dose: 650 mg Albuterol/Ipratropium (Duoneb 3 Mg/0.5 Mg (3 Ml) Ud) 3 ml INH RQ6 PRN PRN Reason: Shortness of Breath Heparin Sodium (Porcine) (Heparin) 5,000 units SC Q12 [facility] Last Admin: 07/23/17 10:44 Dose: 5,000 units Ceftriaxone Sodium (Rocephin Iv 1 Gm Duplex) 50 mls @ 100 mls/hr IVPB Q24H [facility] Last Admin: 07/23/17 17:25 Dose: 100 mls/hr Sodium Chloride (Sodium Chloride 0.45%) 1,000 mls @ 100 mls/hr IV .Q10H [facility] Last Admin: 07/23/17 06:44 Dose: Not Given Pantoprazole Sodium (Protonix Ec Tab) 40 mg PO DAILY [facility] Last Admin: 07/23/17 10:44 Dose: 40 mg Saccharomyces Boulardii (Florastor) 250 mg PO BID [facility] Last Admin: 07/23/17 17:25 Dose: 250 mg Fluticasone/Salmeterol (Advair Diskus 250/50) 1 puff INH RQ12 [facility] Last Admin: 07/22/17 19:21 Dose: 1 puff - Labs Labs: 07/23/17 11:35 07/23/17 11:35 - Constitutional Appears: Non-toxic - Head Exam Head Exam: NORMAL INSPECTION - Eye Exam Eye Exam: EOMI, Normal appearance - ENT Exam ENT Exam: Mucous Membranes Moist - Neck Exam Neck Exam: Full ROM - Respiratory Exam Respiratory Exam: NORMAL BREATHING PATTERN. absent: Accessory Muscle Use, Respiratory Distress - Cardiovascular Exam Cardiovascular Exam: REGULAR RHYTHM, +S1, +S2. absent: Bradycardia, Tachycardia - GI/Abdominal Exam GI & Abdominal Exam: Soft. absent: Tenderness - Extremities Exam Extremities Exam: Full ROM. absent: Pedal Edema Additional comments: clubbing fingernails - Neurological Exam Neurological Exam: Alert, Awake, Oriented x3 - Psychiatric Exam Psychiatric exam: Normal Affect, Normal Mood - Skin Skin Exam: Dry, Intact, Normal Color, Warm Assessment and Plan - Assessment and Plan (Free Text) Assessment: Sepsis 2/2 UTI/Pyelonephritis/cystitis with positive CVA tenderness 07/19: febrile Tmax 100.9F. WBC decreased to 13.9 today, no bands. CXR - Findings suspicious for COPD/ emphysema. CT Abd/Pelvis w/o PO or IV contrast: mild to moderate diffuse enlargement of R kidney without stone. Sigmoid colon wall thickening. Distended bladder contains free air. 07/19 VB.31 pO2/pCO2/HCO3/lactate 34/30/16.2/0.8 Urine Cx: yeast, E. Coli, pansensitive 07/20 Renal US: right kidney < left kidney Renal function improving. IVF changed to 1/[address] Hager Per ID consult Dr. De Leon: can be treated with monotherapy- rocephin, patient is clear for discharge per Infectious disease eval in progress Urology consult UA: cloudy (non-transparent), 1+ protein, 2+ blood, 3+ Leukocyte esterase, many bacteria RPR - nonreactive Hep Bs Ab - negative HIV Ab screen - negative PSA - 1.26 Procalcitonin 15.67 H Received one dose of Rocephin 1gm and Azithromycin in ED Started on Doxycycline 100mg IVPB Q12H and Zosyn 2.25gm IVPB Q8H Echo: EF 55-60%, mild to moderate Tricuspid regurgitation, trace pulmonic valvular regurgitation f/u blood culture x4 (2 sets of 2) f/u GC/Chlamydia Consulted ID Dr De Leon: Add florastor 250mg PO daily Fevers, clubbed fingers LAURA ESR RF XRAY of hands, f/u Hypokalemia, repleted f/u BMP in AM with mag and phos Per Nephrology: unclear if hypokalemia is due to renal failur and metabolic acidosis. AM aldosterone/renine ordered Hypokalemia, repleted continue antibiotics / supportive care Non-Anion Gap Metabolic Acidosis Added bicarb to IVF NS, 3 amps of HCO3 in 850ml Acute on Chronic Kidney Disease, RADHA resolving GFR 39, likely chronic kidney disease 07/20 f/u renal ultrasound Nephrology Consult Dr. Sp Devries: f/u recommendations BUN/Cr improving with IVF Avoid nephrotoxic medications monitor CBCs Rocephin [address] De Leon started on 07/20 IVF1/2 NS @100cc/hr COPD/Emphysema As seen on Chest X-ray Advair 250/50 INH 1puff q12h Duonebs INH q6h prn SOB Prophylaxis Heparin 5000units SC Q8H Protonix 40mg PO daily SCDs discuss with Dr. Nemo Nielsen, DO PGY1
[2017-07-24] MEDS: Sodium Chloride 0.45% 1,000 ML IV SCH ×3 (04:58→13:45)
[2017-07-24 06:31] LABS: BASO # 0.1 K/uL (0.0-0.2); EOS # 0.4 K/uL (0.0-0.7); EOS % 3.1 % (0.0-4.0); HEMATOCRIT 34.4 % (35.0-51.0); LYMPH # 2.1 K/uL (1.0-4.3); LYMPH % 18.1 % (20.0-40.0); MEAN CELL VOLUME 97.9 fL (80.0-94.0); MEAN CORPUSCULAR HEMOGLOBIN 33.6 pg (27.0-31.0); MEAN CORPUSCULAR HGB CONC 34.3 g/dL (33.0-37.0); MONO # 0.7 K/uL (0.0-0.8); MONO % 6.3 % (0.0-10.0); RED CELL DISTRIBUTION WIDTH 14.9 % (11.5-14.5); WHITE BLOOD COUNT 11.5 K/uL (4.8-10.8)
[2017-07-24 07:31] LABS: CHLORIDE 105 mmol/L (98-107); SODIUM 133 mmol/L (132-148)
[2017-07-24 07:32] LABS: POTASSIUM 4.1 mmol/L (3.6-5.2)
[2017-07-24 07:34] LABS: ALB/GLOB RATIO 0.7 (1.0-2.1); ALKALINE PHOSPHATASE 177 U/L (38-126); AST/SGOT 57 U/L (17-59); BILIRUBIN,TOTAL 0.6 mg/dL (0.2-1.3); BLOOD UREA NITROGEN 23 mg/dL (9-20); CARBON DIOXIDE 18 mmol/L (22-30); GFR AFRICAN-AMERICAN > 60; TOTAL PROTEIN 7.4 g/dL (6.3-8.3)
[2017-07-24 07:35] LABS: ALT/SGPT 48 U/L (21-72); CALCIUM 8.4 mg/dl (8.6-10.4); GLUCOSE,RANDOM 89 mg/dL (75-110)
[2017-07-24] MEDS: Fluticasone-Salmeterol 250-50mcg Diskus INH SCH (07:40)
[2017-07-24 08:59] VITALS: O2SAT 97
[2017-07-24 09:26] LABS: CHLORIDE URINE 100 mmol/L (32-290)
[2017-07-24] MEDS: Pantoprazole 40 mg EC Tab PO SCH (09:57)
[2017-07-24] MEDS: Saccharomyces Boulardi 250 mg Cap PO SCH (09:57)
--- NOTE | 2017-07-24 14:13 | CP.PCM.PN ---
Subjective - Date & Time of Evaluation Date of Evaluation: 07/24/17 Time of Evaluation: 14:10 - Subjective Subjective: Feels much better RADHA resolving- last creat 1.4 No fevers, chills, n, v, diarrhea, SOB On rx for UTI Objective - Vital Signs/Intake and Output Vital Signs (last 24 hours): Temp Pulse Resp BP Pulse Ox 98.2 F 64 20 110/65 97 07/24/17 12:44 07/24/17 08:00 07/24/17 07:25 07/24/17 07:25 07/24/17 07:25 Intake and Output: 07/24/17 07/24/17 06:59 18:59 Intake Total 2200 Output Total 400 Balance 1800 - Medications Medications: Current Medications Acetaminophen (Tylenol 325mg Tab) 650 mg PO Q6 PRN PRN Reason: Fever or pain Last Admin: 07/21/17 23:57 Dose: 650 mg Albuterol/Ipratropium (Duoneb 3 Mg/0.5 Mg (3 Ml) Ud) 3 ml INH RQ6 PRN PRN Reason: Shortness of Breath Ceftriaxone Sodium (Rocephin Iv 1 Gm Duplex) 50 mls @ 100 mls/hr IVPB Q24H [facility] Last Admin: 07/23/17 17:25 Dose: 100 mls/hr Sodium Chloride (Sodium Chloride 0.45%) 1,000 mls @ 100 mls/hr IV .Q10H [facility] Last Admin: 07/24/17 08:28 Dose: 100 mls/hr Pantoprazole Sodium (Protonix Ec Tab) 40 mg PO DAILY [facility] Last Admin: 07/24/17 09:57 Dose: 40 mg Saccharomyces Boulardii (Florastor) 250 mg PO BID [facility] Last Admin: 07/24/17 09:57 Dose: 250 mg Fluticasone/Salmeterol (Advair Diskus 250/50) 1 puff INH RQ12 [facility] Last Admin: 07/24/17 07:40 Dose: 1 puff - Labs Labs: 07/24/17 06:19 07/24/17 06:19 - Constitutional Appears: No Acute Distress, Chronically Ill - Head Exam Head Exam: ATRAUMATIC, NORMAL INSPECTION - Eye Exam Eye Exam: EOMI, Normal appearance - Neck Exam Neck Exam: Normal Inspection. absent: Tenderness - Respiratory Exam Respiratory Exam: Clear to Ausculation Bilateral, NORMAL BREATHING PATTERN - Cardiovascular Exam Cardiovascular Exam: REGULAR RHYTHM, +S1 - GI/Abdominal Exam GI & Abdominal Exam: Soft. absent: Tenderness - Extremities Exam Extremities Exam: Normal Inspection. absent: Tenderness - Neurological Exam Neurological Exam: Awake, CN II-XII Intact - Skin Skin Exam: Dry, Warm Assessment and Plan (1) RADHA (acute kidney injury) Status: Acute (2) UTI (urinary tract infection) Status: Acute (3) Metabolic acidosis Status: Acute (4) Hypokalemia Status: Acute - Assessment and Plan (Free Text) Plan: Recheck chemistries On IV fluids Continue IV ABs
--- NOTE | 2017-07-24 14:38 | VASCLAB ---
PROCEDURE: Lower Extremity Venous Duplex Exam. HISTORY: Pain in limb PRIORS: No previous vascular exam. TECHNIQUE: Bilateral common femoral, femoral, popliteal and posterior tibial, peroneal and great saphenous veins were evaluated. Flow was assessed with color Doppler, compressibility, assessment of phasic flow and augmentation response. Report prepared by [employer] FINDINGS: RIGHT: 1. Common Femoral Vein: 1.1. Compressibility - Fully compressible: Thrombus - None : Flow - Phasic: Augmentation -Normal: Reflux - None. 2. Femoral Vein: 2.1. Compressibility - Fully compressible: Thrombus - None : Flow - Phasic: Augmentation -Normal: Reflux - None. 3. Popliteal Vein: 3.1. Compressibility - Fully compressible: Thrombus - None : Flow - Phasic: Augmentation -Normal: Reflux - None. 4. Posterior Tibial Vein: 4.1. Compressibility - Fully compressible: Thrombus - None: Flow - Phasic: Augmentation -Normal: Reflux - None. 5. Peroneal Vein: 5.1. Compressibility - Fully compressible: Thrombus - None: Flow - Phasic: Augmentation -Normal: Reflux - None. 6. Great Saphenous Vein: 6.1. Compressibility - Fully compressible: Thrombus - None: Flow - Phasic: Augmentation - Normal: Reflux - None. LEFT: 1. Common Femoral Vein: 1.1. Compressibility - Fully compressible: Thrombus - None: Flow - Phasic: Augmentation -Normal: Reflux - None. 2. Femoral Vein: 2.1. Compressibility - Fully compressible: Thrombus - None: Flow - Phasic: Augmentation -Normal: Reflux - None. 3. Popliteal Vein: 3.1. Compressibility - Fully compressible: Thrombus - None : Flow - Phasic: Augmentation -Normal: Reflux - None. 4. Posterior Tibial Vein: 4.1. Compressibility - Fully compressible: Thrombus - None: Flow - Phasic: Augmentation -Normal: Reflux - None. 5. Peroneal Vein: 5.1. Compressibility - Fully compressible: Thrombus - None: Flow - Phasic: Augmentation -Normal: Reflux - None. 6. Great Saphenous Vein: 6.1. Compressibility - Fully compressible: Thrombus - None: Flow - Phasic: Augmentation - Normal: Reflux - None. OTHER FINDINGS: Right: None significant. Left: None significant. IMPRESSION: Right: No evidence of deep or superficial vein thrombosis of the right lower extremity. Normal valve function noted of the right side. Left: No evidence of deep or superficial vein thrombosis of the left lower extremity. Normal valve function noted of the left side.
[2017-07-24 16:13] VITALS: BP 109/75; PULSE 70; TEMP 98.1
--- NOTE | 2017-07-24 16:53 | CP.PCM.PN ---
Subjective - Date & Time of Evaluation Date of Evaluation: 07/24/17 Time of Evaluation: 09:00 - Subjective Subjective: cultures noted d/c on tin discussed on rounds Objective - Vital Signs/Intake and Output Vital Signs (last 24 hours): Temp Pulse Resp BP Pulse Ox 98.1 F 70 20 109/75 97 07/24/17 15:12 07/24/17 15:12 07/24/17 15:12 07/24/17 15:12 07/24/17 15:12 Intake and Output: 07/24/17 07/24/17 06:59 18:59 Intake Total 2200 1300 Output Total 400 Balance 1800 1300 - Medications Medications: Current Medications Acetaminophen (Tylenol 325mg Tab) 650 mg PO Q6 PRN PRN Reason: Fever or pain Last Admin: 07/21/17 23:57 Dose: 650 mg Albuterol/Ipratropium (Duoneb 3 Mg/0.5 Mg (3 Ml) Ud) 3 ml INH RQ6 PRN PRN Reason: Shortness of Breath Ceftriaxone Sodium (Rocephin Iv 1 Gm Duplex) 50 mls @ 100 mls/hr IVPB Q24H [facility] Last Admin: 07/23/17 17:25 Dose: 100 mls/hr Sodium Chloride (Sodium Chloride 0.45%) 1,000 mls @ 100 mls/hr IV .Q10H [facility] Last Admin: 07/24/17 13:45 Dose: Not Given Pantoprazole Sodium (Protonix Ec Tab) 40 mg PO DAILY [facility] Last Admin: 07/24/17 09:57 Dose: 40 mg Saccharomyces Boulardii (Florastor) 250 mg PO BID [facility] Last Admin: 07/24/17 09:57 Dose: 250 mg Fluticasone/Salmeterol (Advair Diskus 250/50) 1 puff INH RQ12 [facility] Last Admin: 07/24/17 07:40 Dose: 1 puff - Labs Labs: 07/24/17 06:19 07/24/17 06:19 - Constitutional Appears: Non-toxic - Head Exam Head Exam: NORMOCEPHALIC - Eye Exam Eye Exam: PERRL - ENT Exam ENT Exam: Mucous Membranes Dry - Neck Exam Neck Exam: absent: Lymphadenopathy - Respiratory Exam Respiratory Exam: Decreased Breath Sounds - Cardiovascular Exam Cardiovascular Exam: REGULAR RHYTHM - GI/Abdominal Exam GI & Abdominal Exam: Distended, Soft Assessment and Plan (1) RADHA (acute kidney injury) Status: Acute (2) Renal insufficiency Status: Acute (3) UTI (urinary tract infection) Status: Acute
--- NOTE | 2017-07-24 22:23 | CP.PCM.DIS ---
Provider - Provider Date of Admission: 07/18/17 18:36 Attending physician: Kartik Murphy MD Consults: ID Consult: Dr. De Leon for Sepsis secondary to UTI/Pyelonephritis Nephrology Consult: Dr. Bell Urology Consult: Dr. Campos Time Spent in preparation of Discharge (in minutes): 35 Hospital Course - Lab Results Lab Results: Micro Results 07/21/17 09:25 Blood Blood Culture - Preliminary NO GROWTH AFTER 3 DAYS 07/21/17 09:25 Blood Blood Culture - Preliminary NO GROWTH AFTER 3 DAYS 07/18/17 22:10 Blood-Venous Blood Culture - Final NO GROWTH AFTER 5 DAYS 07/18/17 22:10 Blood-Venous Gram Stain - Final TEST NOT PERFORMED 07/18/17 21:10 Blood-Venous Blood Culture - Final NO GROWTH AFTER 5 DAYS 07/18/17 21:10 Blood-Venous Gram Stain - Final TEST NOT PERFORMED 07/18/17 16:35 Blood Blood Culture - Final NO GROWTH AFTER 5 DAYS 07/18/17 16:35 Blood Gram Stain - Final TEST NOT PERFORMED 07/18/17 19:00 Blood Blood Culture - Final NO GROWTH AFTER 5 DAYS 07/18/17 19:00 Blood Gram Stain - Final TEST NOT PERFORMED 07/21/17 Unknown Urine Urine Culture - Final Yeast Species 07/18/17 17:36 Urine Urine Culture - Final Escherichia Coli Most Recent Lab Values WBC 11.5 K/uL (4.8-10.8) H 07/24/17 06:19 RBC 3.51 Mil/uL (4.40-5.90) L 07/24/17 06:19 Hgb 11.8 g/dL (12.0-18.0) L 07/24/17 06:19 Hct 34.4 % (35.0-51.0) L 07/24/17 06:19 MCV 97.9 fL (80.0-94.0) H 07/24/17 06:19 MCH 33.6 pg (27.0-31.0) H 07/24/17 06:19 MCHC 34.3 g/dL (33.0-37.0) 07/24/17 06:19 RDW 14.9 % (11.5-14.5) H 07/24/17 06:19 Plt Count 279 K/uL (130-400) 07/24/17 06:19 MPV 8.0 fL (7.2-11.7) 07/24/17 06:19 Neut % (Auto) 71.5 % (50.0-75.0) 07/24/17 06:19 Lymph % (Auto) 18.1 % (20.0-40.0) L 07/24/17 06:19 [place] % (Auto) 6.3 % (0.0-10.0) 07/24/17 06:19 Eos % (Auto) 3.1 % (0.0-4.0) 07/24/17 06:19 Baso % (Auto) 1.0 % (0.0-2.0) 07/24/17 06:19 Neut # 8.2 K/uL (1.8-7.0) H 07/24/17 06:19 Lymph # 2.1 K/uL (1.0-4.3) 07/24/17 06:19 [place] # 0.7 K/uL (0.0-0.8) 07/24/17 06:19 Eos # 0.4 K/uL (0.0-0.7) 07/24/17 06:19 Baso # 0.1 K/uL (0.0-0.2) 07/24/17 06:19 Neutrophils % (Manual) 60 % (50-75) 07/20/17 07:47 Band Neutrophils % 16 % (0-2) H* 07/20/17 07:47 Lymphocytes % (Manual) 9 % (20-40) L 07/20/17 07:47 Monocytes % (Manual) 15 % (0-10) H 07/20/17 07:47 Platelet Estimate Normal (NORMAL) 07/20/17 07:47 Large Platelets Present 07/20/17 07:47 Hypochromasia (manual) Slight 07/20/17 07:47 Poikilocytosis (manual Slight 07/20/17 07:47 Anisocytosis (manual) Slight 07/20/17 07:47 Target Cells Slight 07/20/17 07:47 ESR 103 mm/hr (0-15) H 07/24/17 06:19 pO2 34 mm/Hg (30-55) 07/18/17 18:01 VBG pH 7.31 (7.32-7.43) L 07/18/17 18:01 VBG pCO2 30 mmHg (40-60) L 07/18/17 18:01 VBG HCO3 16.2 mmol/L 07/18/17 18:01 VBG Total CO2 16.0 mmol/L (22-28) L 07/18/17 18:01 VBG O2 Sat (Calc) 71.0 % (40-65) H 07/18/17 18:01 VBG Base Excess -9.8 mmol/L (0.0-2.0) L 07/18/17 18:01 VBG Potassium 2.3 mmol/L (3.6-5.2) L* 07/18/17 18:01 Sodium 136.0 mmol/l (132-148) 07/18/17 18:01 Chloride 112.0 mmol/L (98-107) H 07/18/17 18:01 Glucose 111 mg/dl (75-110) H 07/18/17 18:01 Lactate 0.8 mmol/L (0.7-2.1) 07/18/17 18:01 Crit Value Called To Dr. catalan 07/18/17 18:01 Crit Value Called By Ricky qiu 07/18/17 18:01 Crit Value Read Back Y 07/18/17 18:01 Blood Gas Notified Time 1804 07/18/17 18:01 Sodium 133 mmol/L (132-148) 07/24/17 06:19 Potassium 4.1 mmol/L (3.6-5.2) 07/24/17 06:19 Chloride 105 mmol/L (98-107) 07/24/17 06:19 Carbon Dioxide 18 mmol/L (22-30) L 07/24/17 06:19 Anion Gap 14 (10-20) 07/24/17 06:19 BUN 23 mg/dL (9-20) H 07/24/17 06:19 Creatinine 1.4 mg/dL (0.8-1.5) 07/24/17 06:19 Est GFR ( Amer) > 60 07/24/17 06:19 Est GFR (Non-Af Amer) 53 07/24/17 06:19 Random Glucose 89 mg/dL (75-110) 07/24/17 06:19 Calcium 8.4 mg/dl (8.6-10.4) L 07/24/17 06:19 Phosphorus 3.1 mg/dL (2.5-4.5) 07/19/17 08:07 Magnesium 1.7 mg/dL (1.6-2.3) 07/22/17 07:26 Total Bilirubin 0.6 mg/dL (0.2-1.3) 07/24/17 06:19 AST 57 U/L (17-59) 07/24/17 06:19 ALT 48 U/L (21-72) 07/24/17 06:19 Alkaline Phosphatase 177 U/L (38-126) H 07/24/17 06:19 Total Protein 7.4 g/dL (6.3-8.3) 07/24/17 06:19 Albumin 3.0 g/dL (3.5-5.0) L 07/24/17 06:19 Globulin 4.3 gm/dL (2.2-3.9) H 07/24/17 06:19 Albumin/Globulin Ratio 0.7 (1.0-2.1) L 07/24/17 06:19 Prostate Specific Ag 1.26 ng/mL (0.00-4.0) 07/18/17 21:17 Procalcitonin 0.89 NG/ML (0.19-0.49) H 07/23/17 14:18 Venous Blood Potassium 2.3 mmol/L (3.6-5.2) L* 07/18/17 18:01 Urine Color Yellow (YELLOW) 07/21/17 11:31 Urine Clarity Clear (Clear) 07/21/17 11:31 Urine pH 8.0 (5.0-8.0) 07/21/17 11:31 Ur Specific [place] 1.009 (1.003-1.030) 07/21/17 11:31 Urine Protein Negative mg/dL (NEGATIVE) 07/21/17 11:31 Urine Glucose (UA) Normal mg/dL (Normal) 07/21/17 11:31 Urine Ketones Negative mg/dL (NEGATIVE) 07/21/17 11:31 Urine Blood 1+ (NEGATIVE) H 07/21/17 11:31 Urine Nitrate Negative (NEGATIVE) 07/21/17 11:31 Urine Bilirubin Negative (NEGATIVE) 07/21/17 11:31 Urine Urobilinogen Normal mg/dL (0.2-1.0) 07/21/17 11:31 Ur Leukocyte Esterase 3+ Zoltan/uL (Negative) H 07/21/17 11:31 Urine WBC (Auto) 50 /hpf (0-5) H 07/21/17 11:31 Urine RBC (Auto) 9 /hpf (0-3) H 07/21/17 11:31 Ur Squamous Epith Cells < 1 /hpf (0-5) 07/21/17 11:31 Urine Bacteria Rare (<OCC) 07/21/17 11:31 Ur Random Sodium 121 mmol/L 07/22/17 15:57 Ur Random Potassium 16.9 mmol/L 07/22/17 15:57 Urine Chloride 100 mmol/L (32-290) 07/22/17 15:57 Rheum Arthritis Panel Negative (NEGATIVE) 07/22/17 21:46 LAURA 6 Profile Negative (NEGATIVE) 07/22/17 20:04 RPR Nonreactive (NONREACTIVE) 07/18/17 16:40 C.trachomatis RNA (TMA) Not detected (Not Detected) 07/18/17 17:55 Hep Bs Antibody Negative (NEGATIVE) 07/18/17 16:40 HIV 1&2 Antibody Screen Negative (NEGATIVE) 07/18/17 16:40 N.gonorrhoeae RNA (TMA) Not detected (Not Detected) 07/18/17 17:55 - Hospital Course Hospital Course: Patient is a 57 year old male with no past medical history, presenting to the emergency room with fever/chills, body aches and painful, darkened/ discolored urine. The patient is predominately [place]an speaking, a nurse was used to translate. Patient states the symptoms originally started two weeks ago and have been getting progressively worse. The patient states he started having painful urination about 2 weeks ago. He soon noticed that his urine was darker and brown in color. Over the past few days he has started to experience subjective fevers and chills periodically. He also states that he has been experiencing lower abdominal discomfort along with whole body aches. Patient states he is monogamous with his girlfriend and uses condoms for protection. He denies hx of STDs. Denies n/v/d/c, chest pain, sob, lightheadness, dizziness or headaches. Hospital course During hospital stay, patient originally had back pain bilaterally, but continued to deny seeing blood in urine, stated his urine was yellow and clear in apperance. Patient had a fever of 100.9, and Bands of 16 patient continued on IV antibiotics. VBG obtained on 07/19 VBG: pO2 - 34 pH - 7.31 L pCO2 - 30 L HCO3 - 16.2 Lactate - 0.8 Patient was found to have an Non-Anion Gap Metabolic Acidosis and was given bicarb with normal saline (3amps in 850cc). Patient got an ultrasound to evaluate kidneys. No renal pathology noted. Patient spiked fevers during initial part of hospital course, which resolved. Patient was noted to have clubbed fingers, patient had an XRAY of hands that showed osteoarthritic changes. No new source of fever found upon further investigation. Patient no longer spiked fevers at this point. urine cultures E. Coli positive on 07/18. 07/21 positive for Yeast, Per ID, no need to treat. Prophylaxis Heparin 5000 SC Q8H Protonix 40mg POQD SCDs Patient discharged with instructions to Follow up with urologist in 1 [address] [facility] to follow up kidney function (August 03 at 1 pm) Follow up BMP, monitor kidney function Follow up with strike operations officer in 1 week Take augmentin 875/125mg POBID x 10 days Please see EHR for further information - Date & Time of H&P Date of H&P: 07/24/17 Time of H&P: 22:41 Discharge Exam - Head Exam Head Exam: NORMOCEPHALIC - Eye Exam Eye Exam: EOMI, Normal appearance - ENT Exam ENT Exam: Mucous Membranes Moist, Normal Oropharynx. absent: Mucous Membranes Dry - Respiratory Exam Respiratory Exam: NORMAL BREATHING PATTERN. absent: Accessory Muscle Use - Cardiovascular Exam Cardiovascular Exam: REGULAR RHYTHM, +S1, +S2 - GI/Abdominal Exam GI & Abdominal Exam: Normal Bowel Sounds, Soft. absent: Tenderness - Back Exam Back exam: absent: CVA tenderness (L), CVA tenderness (R) - Neurological Exam Neurological exam: Alert, Normal Gait, Oriented x3 - Psychiatric Exam Psychiatric exam: Normal Affect, Normal Mood - Skin Skin Exam: Dry, Intact, Normal Color, Warm Discharge Plan - Discharge Medications Prescriptions: Amoxicillin/Clavulanate [Augmentin 875 MG-125 MG] 1 tab PO BID 10 Days tab - Follow Up Plan Condition: GUARDED Disposition: HOME/ ROUTINE Instructions: Amoxicillin/Clavulanate Potassium (By mouth), Acute Kidney Injury (DC), Urinary Tract Infection in Men (DC), Heart Healthy Diet (DC), Sepsis (GEN), Leukocytosis (DC) Additional Instructions: Follow up with urologist in 1 week Establish care with [facility] to follow up kidney function (August 03 at 1 pm) Follow up BMP, monitor kidney function Follow up with strike operations officer in 1 week Take augmentin 875/125mg POBID x 10 days Referrals: [facility] at [facility] [Outside]
[2017-07-26 16:41] LABS: ALDOSTERONE <1 ng/dL
--- NOTE | 2017-07-26 17:12 | CARD ---
APPROVED REPORT EKG Measurement Heart [id number] <Conclusion> Sinus tachycardia Minimal voltage criteria for LVH, may be normal variant Borderline ECG
== END 2017-07-24 16:55 | disposition home or self-care (01) | DRG 584 ==
LOC: C.ER 14:58 → C.9E 18:36 → C.6T 23:36
PROVIDERS: ADMIT Internal Medicine; ATTEND Internal Medicine
DX: A41.9 Sepsis, unspecified organism (principal); N17.9 Acute kidney failure, unspecified; E87.2 Acidosis; J43.9 Emphysema, unspecified; N12 Tubulo-interstitial nephritis, not specified as acute or chronic; N30.90 Cystitis, unspecified without hematuria; B96.20 Unspecified Escherichia coli [E. coli] as the cause of diseases classified elsewhere; E87.6 Hypokalemia; J44.9 Chronic obstructive pulmonary disease, unspecified; N18.9 Chronic kidney disease, unspecified; K57.30 Diverticulosis of large intestine without perforation or abscess without bleeding; M19.90 Unspecified osteoarthritis, unspecified site; F17.200 Nicotine dependence, unspecified, uncomplicated